=== PATIENT | female | born 1960 | race Caucasian/White ===

== ENCOUNTER 2018-07-04 09:39 | Outpatient (REF) | payer MEDICAID, SELFPAY ==
[2018-07-04 13:06] LABS: ALT 35 U/L (12-78); AST 25 U/L (15-37); Albumin 3.9 g/dL (3.4-5.0); Alkaline Phosphatase 75 U/L (46-116); Anion Gap 11.8 mmol/L (3-11); BUN 21 mg/dL (7-18); Bilirubin, Total 0.5 mg/dL (0.2-1.0); CO2 28.2 mmol/L (21.0-32.0); Calcium 9.5 mg/dL (8.5-10.1); Chloride 101 mmol/L (98-107); Cholesterol 180 mg/dL (50-200); Glucose 96 mg/dL (70-100); HDL Cholesterol 50 mg/dL (40-60); LDL CHOLESTEROL 110 mg/dL (<100); Potassium 3.5 mmol/L (3.5-5.1); Sodium 141 mmol/L (136-145); Total Protein 7.4 g/dL (6.4-8.2); Triglyceride 136 mg/dL (30-150)
[2018-07-04 13:13] LABS: COMMENT (LAB VIEW ONLY) 193.47 mg/dL; Microalb ug/mg Crea 7.9 ug/mg Cr
== END 2018-07-04 09:59 ==
LOC: NCHCN 09:39
PROVIDERS: PCP Nurse Practitioner Family; Visit Provider Nurse Practitioner Family
DX: E78.5 Hyperlipidemia, unspecified (principal); I10 Essential (primary) hypertension; E66.01 Morbid (severe) obesity due to excess calories
CPT/HCPCS: 80053; 80061; 83721; 82043; 82570

== ENCOUNTER 2019-06-26 19:00 | Outpatient (REF) | payer MEDICAID, SELFPAY ==
[2019-06-26 13:51] LABS: HGB 14.8 g/dL (12.0-15.5); Mean Corp. HGB Concentration 33.6 g/dL (32.0-36.0); Mean Corpuscular Hemoglobin 29.2 pg (27.0-33.0); Mean Platelet Volume 10.3 fL (8.0-11.0); Platelet Count 314 x1000/uL (130-400); RBC 5.06 m/cumm (4.00-5.20); RBC Distribution Width 13.9 % (11.7-14.6); White Blood Cell Count 7.01 k/cumm (4.4-10.8)
[2019-06-26 13:56] LABS: Anion Gap 11.1 mmol/L (3-11); BUN 20 mg/dL (7-18); CO2 27.9 mmol/L (21.0-32.0); CREATININE 0.87 mg/dL (0.55-1.02); Calcium 9.5 mg/dL (8.5-10.1); Chloride 102 mmol/L (98-107); Glucose 99 mg/dL (70-100); HDL Cholesterol 54 mg/dL (40-60); Sodium 141 mmol/L (136-145); Triglyceride 107 mg/dL (30-150)
[2019-06-26 14:17] LABS: Calculated LDL 156 mg/dL; Cholesterol 231 mg/dL (50-200)
== END 2019-06-26 19:20 ==
LOC: NCHCN 19:00
PROVIDERS: PCP Nurse Practitioner Family; Visit Provider Nurse Practitioner Family
DX: Z13.228 Encounter for screening for other metabolic disorders (principal); Z13.220 Encounter for screening for lipoid disorders; Z00.00 Encounter for general adult medical examination without abnormal findings
CPT/HCPCS: 80048; 80061; 85027

== ENCOUNTER 2019-07-03 10:34 | Outpatient (REF) | payer MEDICAID, SELFPAY ==
[2019-07-03 19:34] LABS: TSH (W/Ref FT4) 1.74 uIU/mL (0.36-3.74)
== END 2019-07-03 10:54 ==
LOC: NCHCN 10:34
PROVIDERS: PCP Nurse Practitioner Family; Visit Provider Nurse Practitioner Family
DX: E04.9 Nontoxic goiter, unspecified (principal)
CPT/HCPCS: 84443

== ENCOUNTER 2019-07-18 00:27 | Outpatient (CLI) | payer MEDICAID, SELFPAY ==
--- NOTE | 2019-07-18 12:00 | DI.US_ITS ---
EXAM: US THYROID CLINICAL HISTORY: ENLARGED THYROID E04.9 TECHNIQUE: Ultrasound performed using standard protocol. COMPARISON: No exams were available for comparison FINDINGS: The right lobe measures 3.7 x 1.7 x 1.8 centimeters. Normal blood flow seen to the right lobe. Ther e are several nodules seen in the right lobe. The largest is hypoechoic and measures 0.6 x 0.6 x 0.6 centimeters. It is solid with internal vascularity. The left lobe measures 4.9 x 2.1 x 2.9 centimeters. There is normal blood flow. There are several t hyroid nodules present; the dominant nodule is seen inferiorly and measures 3.3 x 2.3 x 3.0 centimete rs. It is solid with internal blood flow. The isthmus is enlarged measuring 0.6 centimeters. There are solid nodules seen within the isthmus. Largest measures 1.1 centimeters. It is solid and vascular. IMPRESSION: Multinodular thyroid gland. The dominant nodule is seen in the inferior left lobe. It measures 3.3 x 2.3 x 3.0 centimeters. It is solid with internal vascularity. Biopsy may be considered of this no dule.
== END 2019-07-18 00:47 ==
PROVIDERS: PCP Nurse Practitioner Family; Visit Provider Nurse Practitioner Family
DX: E04.2 Nontoxic multinodular goiter
CPT/HCPCS: 76536

== ENCOUNTER 2021-04-01 18:49 | Outpatient (REF) | payer MEDICAID, SELFPAY ==
[2021-04-01 21:54] LABS: HCT 43.5 % (36.0-46.0); HGB 14.7 g/dL (11.2-15.7); MCH 29.9 pg (27.0-33.0); MCHC 33.8 % (32.0-36.0); MCV 88.6 fL (80-95); MPV 10.5 fL (8.0-11.0); Platelet Count 278 10^3/uL (130-400); RBC 4.91 10^6/uL (3.93-5.22); RDW 13.6 % (11.7-14.6); RDW-SD 44.4 fL; WBC 7.27 10^3/uL (4.4-10.8)
[2021-04-01 22:02] LABS: ESR 13 mm/hr (0-30)
[2021-04-01 22:04] LABS: ALT 35 U/L (14-59); AST 23 U/L (15-37); Albumin 4.1 g/dL (3.4-5.0); Alkaline Phosphatase 67 U/L (46-116); Anion Gap 10.9 mmol/L (3-11); BUN 19 mg/dL (7-18); Bilirubin, Total 0.4 mg/dL (0.2-1.0); CO2 28.1 mmol/L (21.0-32.0); CREATININE 1.1 mg/dL (0.55-1.02); Calcium 9.6 mg/dL (8.5-10.1); Calculated LDL 143 mg/dL (<100); Chloride 102 mmol/L (98-107); Cholesterol 260 mg/dL (<200); Estimated GFR 50.33 (mL/min/1.73m2); Glucose 100 mg/dL (74-106); HDL Cholesterol 49 mg/dL (40-60); Potassium 3.9 mmol/L (3.5-5.1); Sodium 141 mmol/L (136-145); Total Protein 7.4 g/dL (6.4-8.2); Triglyceride 343 mg/dL (<150)
[2021-04-01 22:13] LABS: C-Reactive Protein 0.21 mg/dL (0.0-0.3)
[2021-04-01 22:17] LABS: D-Dimer 418 ng/mlFEU (<500)
== END 2021-04-01 18:50 | disposition home or self-care (01) ==
LOC: NCHCN 18:49
PROVIDERS: PCP Nurse Practitioner Family; Visit Provider Nurse Practitioner Family
DX: E78.5 Hyperlipidemia, unspecified (principal); I10 Essential (primary) hypertension; M25.561 Pain in right knee; G89.29 Other chronic pain
CPT/HCPCS: 80053; 80061; 85027; 85652; 85379; 86140

== ENCOUNTER 2021-04-07 02:21 | Outpatient (CLI) | payer MEDICAID, SELFPAY ==
--- NOTE | 2021-04-07 10:04 | DI.RAD_ITS ---
Exam(s) XR KNEE RT 3V AP,LAT,ROSALINA EXAM: XR KNEE RT 3V AP,LAT,ROSALINA CLINICAL HISTORY: RT KNEE PAIN, M25.561 TECHNIQUE: COMPARISON: No exams were available for comparison FINDINGS: Three views were obtained. There is severe loss of cartilaginous joint space of medial tibiofemoral joint. There is medial subluxation of the femur on the tibia and mild varus angulation of the knee. Note is also made moderate narrowing of the cartilaginous joint space of the patellofemoral joint. There are very prominent marginal osteophytes involving all 3 joints of the knee. Mild subchondral s clerosis noted involving the bones at the medial tibiofemoral joint. 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 RADIATION DOSE DELIVERED: Total DLP
== END 2021-04-07 02:41 ==
PROVIDERS: PCP Nurse Practitioner Family; Visit Provider Nurse Practitioner Family
DX: M17.11 Unilateral primary osteoarthritis, right knee (principal)
CPT/HCPCS: 73562

== ENCOUNTER 2021-07-07 13:55 | Outpatient (CLI) | payer MEDICAID, SELFPAY ==
--- NOTE | 2021-07-07 11:30 | DI.RAD_ITS ---
Exam(s) XR KNEE RT 1V EXAM: XR KNEE RT 1V CLINICAL HISTORY: mag marker - pre-op TECHNIQUE: COMPARISON: CR XR KNEE RT 3V AP,LAT,ROSALINA from 04/07/2021 FINDINGS: Two views were obtained with Mag marker. There are severe degenerative changes of the joints of the knee seen on these lateral views. IMPRESSION: RADIATION DOSE DELIVERED: Total DLP
--- NOTE | 2021-07-07 11:30 | DI.RAD_ITS ---
Exam(s) XR STANDING ALIGNMENT EXAM: XR STANDING ALIGNMENT CLINICAL HISTORY: mag marker pre-op TECHNIQUE: COMPARISON: No exams were available for comparison FINDINGS: AP views of both lower extremities were obtained for standing alignment views. There are severe dege nerative changes of the medial tibiofemoral joints. IMPRESSION: RADIATION DOSE DELIVERED: Total DLP
== END 2021-07-07 13:56 | disposition home or self-care (01) ==
LOC: DIORS 13:56
PROVIDERS: PCP Nurse Practitioner Family; Referring Provider Nurse Practitioner Family; Visit Provider Physician Assistant Surgical
DX: M17.11 Unilateral primary osteoarthritis, right knee (principal)
CPT/HCPCS: 73560; 77073

== ENCOUNTER 2021-07-13 03:45 | Outpatient (CLI) | payer MEDICAID, SELFPAY ==
[2021-07-13 09:43] LABS: HCT 47.6 % (36.0-46.0); HGB 15.9 g/dL (11.2-15.7); MCH 29.1 pg (27.0-33.0); MCHC 33.4 % (32.0-36.0); MCV 87.2 fL (80-95); MPV 9.8 fL (8.0-11.0); Platelet Count 231 10^3/uL (130-400); RBC 5.46 10^6/uL (3.93-5.22); RDW 13.3 % (11.7-14.6); RDW-SD 42.4 fL; WBC 7.23 10^3/uL (4.4-10.8)
[2021-07-13 10:30] LABS: Anion Gap 9.4 mmol/L (3-11); BUN 18 mg/dL (7-18); CO2 29.6 mmol/L (21.0-32.0); CREATININE 0.9 mg/dL (0.55-1.02); Calcium 9.8 mg/dL (8.5-10.1); Chloride 102 mmol/L (98-107); Glucose 99 mg/dL (74-106); Potassium 4.2 mmol/L (3.5-5.1); Sodium 141 mmol/L (136-145)
[2021-07-13 11:43] LABS: Source Nasal/Nares
[2021-07-13 15:51] LABS: COVID-19 PCR Negative (Negative)
== END 2021-07-13 03:46 | disposition home or self-care (01) ==
LOC: LBO 03:45
PROVIDERS: PCP Nurse Practitioner Family; Visit Provider Student in an Organized Health Care Education/Training Program
DX: Z01.818 Encounter for other preprocedural examination (principal); Z20.822 Contact with and (suspected) exposure to COVID-19; M17.11 Unilateral primary osteoarthritis, right knee
CPT/HCPCS: 36415; 80048; 85027; 87635

== ENCOUNTER 2021-07-14 08:02 | Day surgery (SDC) | payer MEDICAID, SELFPAY ==
[2021-07-14] VITALS (11 sets, daily range): BP systolic 121–155; BP diastolic 55–83; PULSE 52–66; RESP 14–18; TEMP 36–36.7; O2SAT 92–96; BMI 47.0
--- NOTE | 2021-07-14 | DI.RAD_ITS ---
Exam(s) XR KNEE RT 2V AP,LAT EXAM: XR KNEE RT 2V AP,LAT CLINICAL HISTORY: s/p R TKA with proximal tibial crack. TECHNIQUE: 2D digital imaging was performed of the right knee. Two views obtained. AP and lateral views were obtained. COMPARISON: CR XR KNEE RT 3V AP,LAT,ROSALINA from 04/07/2021 CR XR STANDING ALIGNMENT from 07/07/2021 CR XR STANDING ALIGNMENT from 07/07/2021 FINDINGS: BONES: No acute fracture is present. No bony destructive lesion is seen. JOINTS: The patient is now status post right total knee replacement. The orthopedic hardware appears in good position. SOFT TISSUE: Postsurgical changes are seen in the soft tissues. IMPRESSION: Status post right TKR. No fracture is identified. DATA REPOSITORY: RADIATION DOSE DELIVERED:
--- NOTE | 2021-07-14 07:56 | PDOC.DSDIS_ITS ---
Documented by User: JARVIS Simpson 07/14/21 08:00 Discharge Plan Disposition Patient Disposition: HOME Condition: Stable Discharge Details Reason For Visit: Right TKA Attending Provider: Husam Cyr Primary Care Provider: Dean Aldana Home Meds and New Rx's Prescriptions: New aspirin 81 mg tablet,delayed release (DR/EC) 81 mg PO BID Qty: 60 RF: 0 acetaminophen [Tylenol Extra Strength] 500 mg tablet 1,000 mg PO Q8H PRN PRNQty: 90 RF: 0 pantoprazole [Protonix] 40 mg tablet,delayed release (DR/EC) 40 mg PO DAILY Qty: 30 RF: 0 gabapentin 300 mg capsule 300 mg PO QHS Qty: 14 RF: 0 oxycodone 5 mg tablet 5 mg PO Q4H PRNQty: 18 RF: 0 meloxicam [Mobic] 15 mg tablet 15 mg PO DAILY Qty: 30 RF: 1 Continued meloxicam 15 mg tablet 15 mg PO DAILY RF: 0 biotin 10 mg tablet 10 mg PO DAILY RF: 0 Move Free Plus MSM 500 mg-66.7 mg- 500 mg-1.1 mg tablet 1 tab PO DAILY RF: 0 propranolol 80 mg tablet 80 mg PO BID RF: 0 omega-3 fatty acids [Fish Oil Concentrate] 1,000 mg capsule 1,000 mg PO DAILY RF: 0 trazodone 100 mg tablet 200 mg PO DAILY RF: 0 oxybutynin chloride 5 mg tablet 5 mg PO BID RF: 0 hydrochlorothiazide 25 mg tablet 25 mg PO DAILY RF: 0 multivitamin Tablet 1 tab PO DAILY RF: 0 No Action acetaminophen [Tylenol Extra Strength] 500 mg Capsule 1,500 PRNRF: 0 Discharge Instructions Additional Instructions: Total Knee Discharge Instructions Activity: The most important activity is to walk. You should try to take short walks a few times a day. It is important that when resting you work on keeping the knee straight. Avoid putting a pillow behind the knee as this will encourage flexion. Work on range of motion exercises as provided by Physical Therapy. Since you had the small crack in the tibia I have asked you to stay on your walker for extra safety. If you have the [employer] bike coming, this will be your primary tool for exercise after the knee replacement. You should use it and follow the directions for the knee. Utilize the other exercises sparingly based on your symptoms. - Start outpatient physical therapy around 2 weeks. - You should wear the FABRICIO hose on both legs for 2 weeks. You may remove these at night. You may also use any compression sock in place of the FABRICIO hose. - Utilize [employer] to review exercises, see videos on exercises and obtain basic information pertaining to your surgery and your recovery. Dressing: Remove the Talib wrap by 2 days after your surgery and put on the FABRICIO stocking given to you from the hospital. Keep the surgical dressing (underneath the TALIB wrap) in place for at least one week. After the first week it may be removed and replaced with light gauze and tape or nothing. The wound and dressing may get wet after 3 days but avoid soaking the dressing or otherwise it will need to be changed. Many people prefer covering the dressing with cling wrap (saran wrap) to minimize it from getting soaked. If it gets wet, just pat dry. If it starts to peel off then it will need to be changed. Medications: - You should take Tylenol and anti-inflammatory Meloxicam as your primary pain control medications. - You have been prescribed a stronger pain medication Oxycodone for breakthrough pain, take as needed as prescribed. - You have also been prescribed a stomach acid reduction agent Pantoprozole to help reduce stomach acid and reflux. - You have been prescribed Gabapentin to take at night for restlessness and nerve pain. - You will be taking Aspirin 81mg twice a day for DVT prevention unless instructed otherwise. - If you have constipation you should take Colace or Miralax (both [id number]). It takes most people 3-4 days to have a bowel movement. Follow-up: 2 weeks If you have any acute concerns or questions, please do not hesitate to contact the office at [phone]. You may contact Dr. Cyr with any questions after hours through the hospital at [phone] or on his cell phone at [phone]. Stand Alone Forms: Anesthesia Discharge InstAnne, Nerve Block Instructions, Zaki Alegre ([facility]) Referrals: Husam Cyr MD [ [facility] STAFF PHYSICIAN] - Equipment/Supplies: Walker Activity:: Activity as Tolerated Shower/Bathe:: 72 hours Diet:: As Tolerated Discharge Orders Discharge Orders: Discharge Order (Routine); Ordered 07/14/21 Ordered By: Tanna Guzman DS: Diagnosis Discharge Diagnosis (1) Localized osteoarthritis of right knee: Status: Acute Documented by User: Husam Cyr MD 07/14/21 13:45 Discharge Plan Disposition Patient Disposition: HOME Condition: Stable Discharge Details Reason For Visit: Right TKA Attending Provider: Husam Cyr Primary Care Provider: Dean Aldana Home Meds and New Rx's Prescriptions: New aspirin 81 mg tablet,delayed release (DR/EC) 81 mg PO BID Qty: 60 RF: 0 acetaminophen [Tylenol Extra Strength] 500 mg tablet 1,000 mg PO Q8H PRN PRNQty: 90 RF: 0 pantoprazole [Protonix] 40 mg tablet,delayed release (DR/EC) 40 mg PO DAILY Qty: 30 RF: 0 gabapentin 300 mg capsule 300 mg PO QHS Qty: 14 RF: 0 oxycodone 5 mg tablet 5 mg PO Q4H PRNQty: 18 RF: 0 meloxicam [Mobic] 15 mg tablet 15 mg PO DAILY Qty: 30 RF: 1 Continued meloxicam 15 mg tablet 15 mg PO DAILY RF: 0 biotin 10 mg tablet 10 mg PO DAILY RF: 0 Move Free Plus MSM 500 mg-66.7 mg- 500 mg-1.1 mg tablet 1 tab PO DAILY RF: 0 propranolol 80 mg tablet 80 mg PO BID RF: 0 omega-3 fatty acids [Fish Oil Concentrate] 1,000 mg capsule 1,000 mg PO DAILY RF: 0 trazodone 100 mg tablet 200 mg PO DAILY RF: 0 oxybutynin chloride 5 mg tablet 5 mg PO BID RF: 0 hydrochlorothiazide 25 mg tablet 25 mg PO DAILY RF: 0 multivitamin Tablet 1 tab PO DAILY RF: 0 No Action acetaminophen [Tylenol Extra Strength] 500 mg Capsule 1,500 PRNRF: 0 Discharge Instructions Additional Instructions: Total Knee Discharge Instructions Activity: The most important activity is to walk. You should try to take short walks a few times a day. It is important that when resting you work on keeping the knee straight. Avoid putting a pillow behind the knee as this will encourage flexion. Work on range of motion exercises as provided by Physical Therapy. Since you had the small crack in the tibia I have asked you to stay on your walker for extra safety. If you have the [employer] bike coming, this will be your primary tool for exercise after the knee replacement. You should use it and follow the directions for the knee. Utilize the other exercises sparingly based on your symptoms. - Start outpatient physical therapy around 2 weeks. - You should wear the FABRICIO hose on both legs for 2 weeks. You may remove these at night. You may also use any compression sock in place of the FABRICIO hose. - Utilize [employer] to review exercises, see videos on exercises and obtain basic information pertaining to your surgery and your recovery. Dressing: Remove the Talib wrap by 2 days after your surgery and put on the FABRICIO stocking given to you from the hospital. Keep the surgical dressing (underneath the TALIB wrap) in place for at least one week. After the first week it may be removed and replaced with light gauze and tape or nothing. The wound and dressing may get wet after 3 days but avoid soaking the dressing or otherwise it will need to be changed. Many people prefer covering the dressing with cling wrap (saran wrap) to minimize it from getting soaked. If it gets wet, just pat dry. If it starts to peel off then it will need to be changed. Medications: - You should take Tylenol and anti-inflammatory Meloxicam as your primary pain control medications. - You have been prescribed a stronger pain medication Oxycodone for breakthrough pain, take as needed as prescribed. - You have also been prescribed a stomach acid reduction agent Pantoprozole to help reduce stomach acid and reflux. - You have been prescribed Gabapentin to take at night for restlessness and nerve pain. - You will be taking Aspirin 81mg twice a day for DVT prevention unless instructed otherwise. - If you have constipation you should take Colace or Miralax (both [id number]). It takes most people 3-4 days to have a bowel movement. Follow-up: 2 weeks If you have any acute concerns or questions, please do not hesitate to contact the office at [phone]. You may contact Dr. Cyr with any questions after hours through the hospital at [phone] or on his cell phone at [phone]. Stand Alone Forms: Anesthesia Discharge InstAnne, Abdiel.Nerve Block Instructions, Zaki Alegre ([facility]) Referrals: Husam Cyr MD [ [facility] STAFF PHYSICIAN] - Equipment/Supplies: Walker Activity:: Activity as Tolerated Shower/Bathe:: 72 hours Diet:: As Tolerated Discharge Orders Discharge Orders: Discharge Order (Routine); Ordered 07/14/21 Ordered By: Tanna Guzman
[2021-07-14] MEDS: Acetaminophen 500 MG TAB 1000 MG PO (08:40)
[2021-07-14] MEDS: Celecoxib 200 MG CAP 400 MG PO (08:40)
[2021-07-14] MEDS: Gabapentin 300 MG CAP PO (08:41)
[2021-07-14] MEDS: Lactated Ringers 1,000 ML 80 ML IV ×2 (09:05→13:15)
--- NOTE | 2021-07-14 10:09 | W.ANESPRE ---
General Info Date of Service Date Performed: 07/14/21 Height: 5 ft 7 in Weight: 136.1 kg Body Mass Index (BMI): 47.0 Surgical Procedure: Operation Date: 07/14/21 10:40 Proposed Procedures Side Surgeon p (R) Knee Total Arthroplasty Right Husam Cyr MD Meds Allergies and Home Medications Allergies Allergy/AdvReac Type Severity Reaction Status Date / Time Gadolinium-Containing Allergy Severe anaphalaxis Verified 07/14/21 08:24 Contrast Medi Home Medication Medication Instructions Recorded biotin 10 mg tablet 10 mg PO DAILY 05/25/21 glucos 500 mg-chond 66.7 mg-msm 1 tab PO DAILY 05/25/21 500 mg-hyalur 1.1 mg-sachin borate tablet hydrochlorothiazide 25 mg tablet 25 mg PO DAILY 05/25/21 meloxicam 15 mg tablet 15 mg PO DAILY 05/25/21 multivitamin 1 tab PO DAILY 05/25/21 omega-3 fatty acids 1,000 mg 1,000 mg PO DAILY 05/25/21 capsule oxybutynin chloride 5 mg tablet 5 mg PO BID 05/25/21 propranolol 80 mg tablet 80 mg PO BID 05/25/21 trazodone 100 mg tablet 200 mg PO DAILY tab 05/25/21 acetaminophen [Tylenol Extra 1,000 mg PO Q8H PRN PRN #90 tab 07/14/21 Strength] acetaminophen [Tylenol Extra 1,500 PRN 07/14/21 Strength] aspirin 81 mg PO BID #60 tab 07/14/21 celecoxib [Celebrex] 200 mg PO BID #60 cap 07/14/21 gabapentin 300 mg PO QHS #14 cap 07/14/21 oxycodone 5 mg PO Q4H PRN #18 tab 07/14/21 pantoprazole [Protonix] 40 mg PO DAILY #30 tab 07/14/21 Current Visit Medications: Current Medications Generic Name Dose Route Start Last Admin Trade Name Freq PRN Reason Stop Dose Admin Acetaminophen 1,000 mg 07/14/21 06:00 07/14/21 08:40 Acetaminophen 500 Mg Tab PO 07/14/21 16:00 1,000 mg PREOP CARMINA Administration Acetaminophen 1,000 mg 07/14/21 14:00 Acetaminophen 500 Mg Tab PO TID CARMINA Aspirin 81 mg 07/14/21 20:00 Aspirin E.C. 81 Mg Tabec PO BID CARMINA Celecoxib 400 mg 07/14/21 06:00 07/14/21 08:40 Celecoxib 200 Mg Cap PO 07/14/21 16:00 400 mg PREOP CARMINA Administration Celecoxib 200 mg 07/14/21 20:00 Celecoxib 200 Mg Cap PO BID CARMINA Docusate Sodium 100 mg 07/14/21 07:55 Docusate Sodium 100 Mg Cap PO BID PRN PRN Constipation Gabapentin 300 mg 07/14/21 06:00 07/14/21 08:41 Gabapentin 300 Mg Cap PO 07/14/21 16:00 300 mg PREOP CARMINA Administration Gabapentin 300 mg 07/14/21 22:00 Gabapentin 300 Mg Cap PO HS CARMINA Hydromorphone HCl 0.5 mg 07/14/21 07:55 Hydromorphone 2 Mg/Ml Vial IVP Q2H PRN PRN Tranexamic Acid 1,000 mg/ 60 mls @ 360 mls/hr 07/14/21 06:00 Sodium Chloride IVPB 07/14/21 16:00 PREOP CARMINA Tranexamic Acid 1,000 mg/ 60 mls @ 360 mls/hr 07/14/21 06:00 Sodium Chloride IVPB 07/14/21 16:00 DIRECTED CARMINA Cefazolin Sodium 3,000 mg/ 100 mls @ 200 mls/hr 07/14/21 06:00 Sodium Chloride IVPB 07/14/21 23:59 PREOP CARMINA Ringer's Solution 1,000 mls @ 80 mls/hr 07/14/21 06:00 07/14/21 09:05 IV 08/12/21 23:59 80 mls/hr INFUSION CARMINA Administration Cefazolin Sodium/Dextrose 1 gm in 50 mls @ 100 mls/hr 07/14/21 16:00 Ancef Duplex IVPB 07/15/21 08:29 Q8H CARMINA IV Miscellaneous Supplies 1 each 07/14/21 06:00 Iv Access IV 08/12/21 23:59 DIRECTED CARMINA Ondansetron HCl 4 mg 07/14/21 07:55 Ondansetron 4 Mg/2 Ml Vial IVP Q6H PRN PRN Nausea Oxycodone HCl 0 mg 07/14/21 07:55 Oxycodone 5 Mg Tab PO Q3H PRN PRN Pain Pantoprazole Sodium 40 mg 07/15/21 07:30 Pantoprazole 40 Mg Tabcr PO DAILY@0730 CARMINA Sodium Chloride 0 ml 07/14/21 06:00 Normal Saline Flush 10 Ml Syr IV 08/12/21 23:59 PRN PRN Sodium Chloride 0 ml 07/14/21 06:00 Normal Saline 10 Ml Vial IJ 08/12/21 23:59 DIRECTED PRN Sterile Water 0 ml 07/14/21 06:00 Water,Injection,Sterile 10 Ml Vial IJ 08/12/21 23:59 DIRECTED PRN PFSH Active Problems Active Problems: Problem Status Onset Code Localized osteoarthritis of right knee M17.11 Hypertension I10 Multinodular thyroid E04.2 Thyroid nodule E04.1 Medical History Medical History (Updated 07/14/21 @ 08:28 by Lainey Dodd) Hypertension Multinodular thyroid pt. reports biopsy two years ago Obesity Thyroid nodule Surgical History Surgical History History of appendectomy (12/18/90) History of cholecystectomy (12/18/90) Tobacco Smoking/Tobacco Use Status: Former Tobacco Use Quit Status: quit date established Alcohol Alcohol Intake: never Substance Use Substance use: Never Substance use type: does not use Vital Signs and Lab Results Vital Signs Most Recent Vital Signs in EMR: Most Recent Vital Signs Temp Pulse Resp BP Pulse Ox 36.7 C 53 L 14 121/73 94 07/14/21 08:32 07/14/21 08:32 07/14/21 08:32 07/14/21 08:32 07/14/21 08:32 Lab Results Blood Type / Crossmatch: No Data to Display Complete Blood Count: White Blood Count 7.23 10^3/uL (4.4-10.8) 07/13/21 09:38 07/13/21 Red Blood Count 5.46 10^6/uL (3.93-5.22) H 07/13/21 09:38 07/13/21 Hemoglobin 15.9 g/dL (11.2-15.7) H 07/13/21 09:38 07/13/21 Hematocrit 47.6 % (36.0-46.0) H 07/13/21 09:38 07/13/21 Platelet Count 231 10^3/uL (130-400) 07/13/21 09:38 07/13/21 Complete Metabolic Panel: Sodium Level 141 mmol/L (136-145) 07/13/21 09:38 07/13/21 Potassium Level 4.2 mmol/L (3.5-5.1) 07/13/21 09:38 07/13/21 Chloride Level 102 mmol/L (98-107) 07/13/21 09:38 07/13/21 Carbon Dioxide Level 29.6 mmol/L (21.0-32.0) 07/13/21 09:38 07/13/21 Blood Urea Nitrogen 18 mg/dL (7-18) 07/13/21 09:38 07/13/21 Creatinine 0.9 mg/dL (0.55-1.02) 07/13/21 09:38 07/13/21 Estimated GFR/1.73 m2 >= 60.00 (mL/min/1.73m2) 07/13/21 09:38 07/13/21 Calcium Level 9.8 mg/dL (8.5-10.1) 07/13/21 09:38 07/13/21 Glucose Level 99 mg/dL (74-106) 07/13/21 09:38 07/13/21 Liver Function Panel: No Data to Display Coagulation Panel: No Data to Display Cardiac Panel: No Data to Display Arterial Blood Gas: No Data to Display Venous Blood Gas: No Data to Display Pancreas Panel: No Data to Display Thyroid Panel: No Data to Display Infectious Disease: Coronavirus (COVID-19)(PCR) Negative (Negative) 07/13/21 10:36 07/13/21 Coronavirus 2019 Source Nasal/Nares 07/13/21 10:36 07/13/21 Blood Cultures: No Data to Display Toxicology Panel: No Data to Display Anesthesia Assessment and Plan Anesthesia History Personal History: No History of Anesthesia Complications Family History: No Family History of Anesthesia Complications Exercise Tolerance Exercise Tolerance: Metabolic Equivalents>4 Pertinent Negatives Pertinent Negatives: No Symptoms of GERD, No Major Cardiovascular Symptoms or Complaints and No Major Pulmonary Symptoms or Complaints Cardiac & Pulmonary Exam Cardiac Exam: Normal S1/S2 Heart Sounds Pulmonary Exam: Clear Bilateral Breath Sounds Implantable Cardiac Device Does patient have a Pacemaker or an ICD?: No Airway Exam Known Difficult Airway: No Mallampati Class: 2 Mouth Opening: Normal (> 3cm) Thyromental Distance: Greater than 3 cm Neck Range of Motion: Full ROM Neck Circumference: Thick Teeth Condition: Normal Dentition ASA Classification ASA Score: ASA 3 Emergency Case?: No NPO Status NPO Status: NPO Clears >2 hours, Solids >8 hours Anesthesia Plan Resuscitation Status: Full Code Anesthesia Technique: Spinal Anesthesia Airway Planned: Natural Airway Pain Management: Surgeon and patient request nerve block Monitors Used: Standard Monitors
[2021-07-14] MEDS: ceFAZolin 3,000 MG in Normal Saline 100 ML 200 MG IVPB (11:23)
--- NOTE | 2021-07-14 11:44 | W.ANESNERVE ---
Nerve Block Single Injection Procedure Date and Time Date Performed: 07/14/21 Procedure Start: 10:55 Location Where Procedure Performed Procedure Location: Day Surgery Unit Reason Performed: Postoperative Analgesia Requesting Provider: Husam Cyr Timeout Performed Timeout Performed: Yes Monitoring Used ECG, Blood Pressure and SpO2 Sterility Sterility: Hand Hygiene, Surgical Cap, Surgical Mask, Sterile Gloves, Sterile Drape/Sheet, Eye Protection and Chlorhexidine Sedation Given During Procedure Sedation Given (Indicate Dose Given): No Sedation given Patient Mental Status Patient Mental Status: Awake Nerve Block 1st Nerve Block: Laterality: Right Block Type: Adductor Canal Needle / Catheter Used: 100mm SonoPlex II Local Anesthetic Bolus (Indicate Dose Given): Lidocaine used for local infiltration of skin and Bupivacaine 0.25% Dose:: 20cc Additives (Indicate Dose Given): None Ultrasound: Sterile probe cover and gel used Ultrasound Image Saved?: Yes Nerve Stimulator: Not Used Paresthesia: None Procedure Tolerated: No Complications and Patient tolerated well Procedure Outcome: Successful Performed By: Felix Lawton
--- NOTE | 2021-07-14 13:59 | DI.RAD_ITS ---
Exam(s) XR TIB/FIB RT EXAM: XR TIB/FIB RT CLINICAL HISTORY: evaluate tibia for fracture s/p TKA. TECHNIQUE: 2D digital imaging was performed of the right tibia and fibula. Two images were obtained. AP and lateral views were obtained. COMPARISON: No exams were available for comparison FINDINGS: The distal tibia is not included on this examination. BONES: No acute fracture is present. No bony destructive lesion is seen. The patient has a right tota l knee replacement. No lucencies are seen around the visualized portions of the orthopedic hardware. SOFT TISSUE: Normal. IMPRESSION: No acute fracture or dislocation of the visualized portions of the tibia and fibula. DATA REPOSITORY: RADIATION DOSE DELIVERED:
--- NOTE | 2021-07-14 15:30 | IN_ITS ---
Date of service: 07/14/21 Time of Service: 15:30 PT Notes Visit Reasons: Right TKA Physical Therapy Day Surgery Initial Evaluation Date: 07/14/2021 Referring Doctor: Husam Cyr MD PT Orders: PT CONSULT: Status post Ortho surgery. Status post right TKA Precautions: WBAT on right LE with AD. Patient Profile/Admitting Diagnosis: Purnima is a 61-year-old female with degenerative joint disease of the right knee and is status post right total knee arthroplasty on postoperative day 0. PMHX: Medical History (Updated 05/26/21 @ 06:05 by Husam Cyr MD) Hypertension Multinodular thyroid Obesity Thyroid nodule Social History/Home Situation: Lives with in a private home with 5 steps to enter with 2 rails with far apart. Has an alternate ramp to enter their office area. 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 Independent with all aspects of ADLs without an assistive device but has had increasing difficulty with mobility since February of this year. Equipment Owned/DME: [facility], [facility] ([employer]) Subjective: Agreeable to PT consult. Reported 2-3/10 pain in the right knee at rest and up to 5/10 pain with weight bearing and ambulation activity. Denies headache, chest pain, and dizziness throughout session. Objective: General Observation: Supine in bed. ANOOP wraps to R LE. Cryo/Cuff to right knee. Alert and oriented x4 Mental Status: Alert and oriented x4 Pain: 2?3/10 pain in the right knee at rest and 5?10 pain with movement and weight bearing ROM: Right Lower Extremity: Hip flexion WFL. Hip abduction WFL. Knee flexion 20 degrees to 100 degrees with pain at end range of movement. Knee extension -20 degrees. Ankle dorsiflexion WFL. Ankle plantarflexion WFL. Left Lower Extremity: Hip flexion WFL. Hip abduction WFL. Knee flexion WFL. Ankle dorsiflexion WFL. Ankle plantarflexion WFL. Strength: [ Right Lower Extremity: Hip flexors 4/5. Hip abductors 4/5. Knee flexors 3-/5. Knee extensors 3-/5. Ankle dorsiflexors 4/5. Ankle plantarflexors 5/5. Left Lower Extremity: Hip flexors 4/5. Hip abductors 4/5. Knee flexors 4/5. Knee extensors 4/5. Ankle dorsiflexors 4/5. Ankle plantarflexors 5/5. Sensation: Intact as to pain and light pressure in bilateral lower extremities. Bed Mobility/Transfers: Supine to sit supervision Sit to stand contact-guard assist Stand to sit standby assist Bed to chair standby assist Gait: Instructed patient with level surface surface ambulation of 100 feet using front wheeled walker with wheelchair follow of Nurse Valentin. Step to gait pattern initially but was able to work on performing step through gait pattern with increasing pain level to 5/10 pain after ambulation activity. Standby assist provided. Minimal verbal cueing for overall safety provided. Stairs: Minimal verbal cueing provided for correct technique with stair negoti ation of 6 x 4 inch steps and 4 x 6 inch steps while holding onto 1 rail with a gait pattern. Standby assist provided. Balance: Static Sitting: Normal Dynamic Sitting: Normal Static Standing: Fair Dynamic Standing: Fair Special Tests: Mobility Limitations Standardized Measure [facility] 6 clicks Basic Mobility Inpatient Short Form: Raw Score: 22 CMS Score: 21% deficit Informed Consent/Education: Patient instructed in purpose of PT consult. Packet containing TKA exercise protocol has been given to patient. Education and training on initial set of exercises that can be done at home have been completed with patient. Assessment: Purnima requires the use of a front wheel walker to maximize independence and reduce fall risk. Patient presents with clinical signs and symptoms consistent with current/admitting diagnoses that have resulted to mobility limitations, gait instability, generalized weakness, and impairment of motor control as demonstrated by the following impairment level findings: 1. Decreased strength to right knee major muscle groups 2. Impaired standing balance 3. Limitation of joint range of motion in right knee Impairments are contributing to the following functional limitations: 1. Inability to safely ambulate without assistive device 2. Increase completion time for mobility ADL performance 3. Increased fall risk Patient is assessed as a 67829 moderate complexity based on the following: History: 61-year-old female with impairment level findings, functional limitations, and past medical history as indicated above Examination: Demonstrable impairment in strength, balance, and mobility level with underlying impairments and functional limitations as documented above Presentation: Evolving Decision Makin moderate complexity Goals: N/A. PT evaluation and 1-2 treatment sessions only for functional mobility training using recommended AD and for HEP instruction. Plan of Care/Treatment Plan: N/A. PT evaluation and 1-2 treatment session only for functional mobility training using recommended AD and for HEP instruction. DISCHARGE RECOMMENDATIONS: [] Home with no services [] Home with services [specify] [X] Home with outpatient PT. Home when medically cleared by orthopedic surgeon. Will require outpatient services to facilitate return to independent community ambulation without an assistive device or with least active ambulatory device. [] SNF for continued rehabilitation [] [] [facility] [] [] SNF versus LTC based on ability to participate and progress [] TREATMENT CODE/TIME: 08345 x 20 minutes, 96669 x 19 minutes beginning at 15:30 PM. Thank you for the opportunity to participate in the care of this patient. Carla Oliva PT, DPT, CLT [facility] [place], [place]
--- NOTE | 2021-07-14 15:33 | W.ANESPOSTOP ---
Postoperative Evaluation Date, Time and Location Date Performed: 07/14/21 Time Performed: 15:33 Patient Location: Day Surgery Unit Vital Signs Most Recent Imported Vital Signs: Most Recent Vital Signs Temp Pulse Resp BP Pulse Ox 36.4 C L 63 18 139/67 93 07/14/21 14:50 07/14/21 14:50 07/14/21 14:50 07/14/21 14:50 07/14/21 14:50 Pain Score Most Recent Pain Score: Most Recent Pain Score Pain Level [Right Knee] 0 07/14/21 08:45 Pain Level 1 07/14/21 14:50 Assessment Mental Status: Awake (Alert & Oriented to Patient Baseline) Airway and Respiratory Function: Patent airway with normal (patient baseline) respiratory exam Cardiovascular Function: Hemodynamically Stable Hydration Status: Adequately Hydrated Nausea & Vomiting: No Nausea or Vomiting Pain: Pt. Denies Any Pain Peripheral Nerve Block: Regional nerve block not resolved at time of post operative discharge Teaching Patient Teaching: Discussed Safe Use of Pain Medication Given Likely or Known FRANCISCO JAVIER
--- NOTE | 2021-07-14 21:12 | W.PM.OP ---
Date of service: 07/14/21 Time of Service: 12:29 Operative Note Operative Note DATE OF PROCEDURE: 07/14/21 PRE-OP DIAGNOSIS: Right Knee Osteoarthritis POST-OP DIAGNOSIS: same PROCEDURE: Right Total Knee Replacement SURGEON: Husam Cyr DERMATOLOGICAL SURGEON: Tanna Guzman ANESTHESIA TYPE: Spinal Refer to Anesthesia Record ESTIMATED BLOOD LOSS: 100 PATHOLOGY: none sent TOURNIQUET TIME: 0 COMPLICATIONS: Other (A contained crack at the anterior tibia developed during final impaction of the tibial component. It was explored and had no extension distally, medially, or laterally. It was unable to be opened or displaced and connected two pinholes on the anterior tibia.) Patient was transported to: PACU Patient's condition: stable Implants: 1. Depuy Attune Cementless Cruciate Retaining Femoral Component, Size 5 2. Depuy Attune Cementless Rotating Platform Tibial Component, Size 4 3. Depuy Attune 5x7mm CR/RP Poly 4. Depuy Attune Patellar Component, Size 35 Indications: I have seen Purnima in clinic for symptoms of knee arthritis, confirmed with radiographic findings. She has exhausted nonoperative methods and was having significant limitations in daily function and desired better function and less pain. I discussed the technical details of a knee replacement. I explained the risks of the procedure to include, but not limited to, bleeding, infection, pain, stiffness, fracture, damage to nerves and vessels, damage to muscles and tendons, loosening, need for repeat procedure, blood clot and cardiopulmonary demise. Despite these risks, Purnima elected to proceed. Findings: There was significant signs of arthritis throughout the knee, the majority was being medial. Bone quality was excellent. Procedure Description: Purnima was greeted in the preoperative holding area where the correct side was identified and marked. The consent was reviewed with the patient and signed. The history and physical was updated. All questions were answered. Preoperative medications were administered: Acetaminophen 1000mg, Celebrex 400mg, and Gabapentin 300mg. An adductor canal block was then administered by the anesthesia team in the PACU. Purnima was taken back to the operating room. A spinal anesthestic was then administered. The patient was placed into the supine position on the operating room table. A nonsterile tourniquet was placed high onto the leg but only used for cementing. Posts were placed for positioning during the procedure. All bony prominences were well padded. Prophylactic antibiotics in the form of Cefazolin were administered. 1g of Tranxemic Acid was given intravenously within 30 minutes of incision. The right leg was then prepped with Chloraprep and draped in a standard fashion with impervious stockinette. A second prep with Chloraprep was performed prior to application of Iodine impregnated skin protection. A timeout to confirm correct identity, side and site, procedure, allergies, anesthesia, and medical concerns was performed. With the knee in some flexion, a midline incision was made overlying the knee. Full thickness skin flaps were raised once the extensor mechanism was encountered. These were raised medially and laterally. Any bleeding was controlled with electrocautery. Once the extensor mechanism was fully exposed, a medial parapatellar arthrotomy was performed in a flexed position. All bleeding from the arthrotomy and the geniculate arteries was coagulated. A medial subperiosteal peel was performed with electrocautery to the midcoronal plane. Due to the significant varus deformity the entire medial tibial plateau was exposed. The fat pad was removed while keeping the patellar tendon protected. The anterior distal femur synovium was removed for later visualization. The ACL and PCL were resected and the anterior horn of the lateral meniscus was transected. The knee was then flexed with the patella everted. Large osteophytes from the tibia were removed. Large osteophytes from the femur were removed. Using a step drill, and based on preoperative templating, the femoral canal was entered. This was done with a step drill without any difficulty. The intramedullary distal femoral cut guide was inserted, set to a 5 degree valgus cut and 9mm cut thickness. The distal femoral cut guide was then held in position and pinned. With the soft tissues protected, the distal cut was performed. This was passed over a few times to ensure a planar cut. I then turned attention to the tibia. The extramedullary guide was placed onto the leg. The distal aspect was slid medial to adjust for position of center of ankle and stay in line with shaft of the tibia. Approximately 3-5 degrees of posterior slope was kept in the proximal cutting guide. The center of the guide was aligned with the PCL. The stylus was used to assess cut thickness. The medial side, most involved side, was set for a 3mm cut. This was then held in position and pinned into place with 2 additional pins and a cross pin for stability. The medial and lateral collateral ligaments were protected and the cut was performed. With this completed, it was assessed and noted to be of appropriate dimensions. The guide was removed. A spacer block was inserted and the knee was brought into extension. The 7mm spacer block provided full extension, without hyperextension and with stability of both the medial and lateral collateral ligaments was assessed. The pins from the femur and the tibia were then removed. The distal femur was then sized. The anterior stylus was placed onto the lateral ridge of the anterior femur. This indicated a size 5 femur. The external rotation of the guide was adjusted to 3 degrees to match the epicondylar axis, perpendicular to Samaria?s line. The 4-in-1 cutting guide was the placed. The posterior medial femur cut was evaluated and appeared of good thickness. The spacer block was inserted underneath the cutting guide and stability was confirmed in 90 degrees of flexion. An destiny wing was used to confirm appropriate position of the anterior cut to avoid notching. This cutting guide was ensured to be flush on the cut surface and then pinned into place with headed pins. While protecting the soft tissues, quad tendon, and collateral ligaments, the anterior and posterior cuts were performed with a saw. The central two pins were removed and the posterior and anterior chamfers were cut next. The notch-cutting guide was placed. This was pinned to lateralize the femoral component as much as possible while keeping it flush on the cut surface. This was then pinned into position. A reciprocating saw was used to make the notch cut. A rasp smoothed the cut surfaces. The medial and lateral menisci were removed. A trial femoral component was then inserted, impacted down to the cut surfaces, and the lug holes were drilled. A provisional trial tibial component was placed and the knee was brought through range of motion. There was noted to be excellent extension and flexion. There was no significant instability. The patella was tracking without thumbs. A size 7mm polyethylene component provided the best range of motion and stability with less than 2mm gapping with medial and lateral stress and full extension without significant hyperextension. The tibial cut surface was fully exposed. The tibia was then sized as a 4. The tibia had been previously marked during trialing to correspond to the center of the tibial component to help with rotation. The trial was aligned to this geoffrey, approximately rotated to the medial 1/3rd of the tibial tubercle. The trial was pinned into place. The tibia was prepared with a reamer and a keel punch and lug holes. The knee was then brought into extension and the patella was measured as 23mm. Using the patellar clamp and cut guide, this was resected to a flat surface with at least 13mm of thickness remaining. The size 35 patella fit the best. This was oriented and then clamped into position. The lugs were drilled. The trial components were removed. The final components were opened on the back table. The periosteal and capsular tissues, especially posteriorly, around the knee were then systematically injected with a periarticular cocktail consisting of 50cc 0.25% Marcaine, 30mg Ketorolac, 20cc of Exparal and 50cc of injectable saline. The knee was thoroughly irrigated with a pulse lavage and dried. Irrisept was also used to irrigate the tissues. On the back table, with the implants opened, the cement was mixed. One batch of high viscosity cement was prepared with vacuum assistance. After the cement was ready a small amount was placed on the cut surface of the patella and the patellar button was clamped into position and held. While the cement was hardening, the cementless knee components were placed. Starting with the tibial component, the tibia was subluxed anteriorly and the lug holes of the component were lined up. The tibia was then impacted with an impactor and mallet until the tibial component was in contact with the tibia. During the final impaction, there was a crack identified of the anteiror tibia. It started from the base of an anterior osteophyte which was resected into a pinhole. I used a freer to identify the crack and follow it. It ended at the pinhole and did not extend medially, laterally, or distally. I used the freer to attempt to mobilize the fragment and assess its stability. I was unable to move the split at all. Once again, I looked distally with some dissection and could not appreciate any extension. Additionally, I loaded the knee axially and placed vaurs and valgus stress on the component and there was no change to the fracture or component. The final polyethylene component was inserted. Then, the femoral component was inserted. The lug holes were aligned and the component was impacted into position. The knee was irrigated with Irrisept chlorhexadine solution. This was allowed to sit in the knee for 3 minutes. After the cement had finally cured, approximately 15min, the clamp was removed from the patella and the knee was taken through range of motion. The patella was tracking with a no-thumbs technique. The capsule was then reapproximated with a No. 1 Vicryl at multiple locations. The capsule was finally closed with a No. 2 Stratafix, barbed suture. The second dosing of 1g TXA was started. Deep tissues were then reapproximated with 0 Vicryl and 2-0 Vicryl. The skin was closed with a running 3-0 Monocryl in a subcuticular fashion. This was reinforced with skin glue. A Mepilex silver dressing was applied along with a [id number]-gltok ANOOP wrap. A CryoCuff was applied. Purnima was transferred to the hospital bed without difficulty an suffering no apparent complication. Purnima has a good prognosis. Physical therapy will start today and without restrictions, weight-bearing as tolerated. Aspirin 81mg BID will be used for DVT prophylaxis.
== END 2021-07-14 17:11 | disposition home or self-care (01) ==
LOC: SUR 08:03
PROVIDERS: PCP Nurse Practitioner Family; Visit Provider Student in an Organized Health Care Education/Training Program
PROC: (CPT 27447; principal; 2021-07-14 10:30)
DX: M17.11 Unilateral primary osteoarthritis, right knee (principal); I10 Essential (primary) hypertension; E66.9 Obesity, unspecified; Z87.891 Personal history of nicotine dependence
CPT/HCPCS: 27447; 97162; 97530; 73560; 73590; J0690; J2001; J2250

== ENCOUNTER 2021-07-27 14:21 | Outpatient (CLI) | payer MEDICAID, SELFPAY ==
--- NOTE | 2021-07-27 13:45 | DI.RAD_ITS ---
Exam(s) XR KNEE RT 1V XR STANDING ALIGNMENT EXAM: XR KNEE RT 1V CLINICAL HISTORY: 1ST POST OP R TKA. TECHNIQUE: 2D digital imaging was performed. COMPARISON: No exams were available for comparison FINDINGS: BONES: No acute fracture is present. No bony destructive lesion is seen. JOINTS: The knee is normally aligned. No joint effusion is seen. Right total knee prosthesis appear s unchanged. Severe narrowing of the medial femoral tibial joint space of the left knee. Varus angu lation. There is bilateral lateral downsloping of the talus and mild medial tibiotalar joint space n arrowing. The hip joint spaces are well maintained. Pelvis is not well penetrated. There is no vis ible leg length discrepancy. SOFT TISSUE: Normal. IMPRESSION: Stable knee prosthesis. Severe degenerative changes medial femoral tibial joint left knee. DATA REPOSITORY: RADIATION DOSE DELIVERED:
== END 2021-07-27 14:22 | disposition home or self-care (01) ==
LOC: DIORS 14:21
PROVIDERS: PCP Nurse Practitioner Family; Referring Provider Nurse Practitioner Family; Visit Provider Student in an Organized Health Care Education/Training Program
DX: Z96.651 Presence of right artificial knee joint (principal); Z47.1 Aftercare following joint replacement surgery
CPT/HCPCS: 73560; 77073

== ENCOUNTER 2022-06-22 15:28 | Outpatient (REF) | payer MEDICAID, SELFPAY ==
[2022-06-22 20:24] LABS: Anion Gap 9.1 mmol/L (3-11); BUN 24 mg/dL (7-18); CO2 27.9 mmol/L (21.0-32.0); Calcium 9.9 mg/dL (8.5-10.1); Chloride 105 mmol/L (98-107); Glucose 84 mg/dL (74-106); Potassium 3.8 mmol/L (3.5-5.1); Sodium 142 mmol/L (136-145)
== END 2022-06-22 15:29 | disposition home or self-care (01) ==
LOC: NCHCN 15:28
PROVIDERS: PCP Nurse Practitioner Family; Visit Provider Nurse Practitioner Family
DX: I10 Essential (primary) hypertension (principal)
CPT/HCPCS: 80048; 84443

== ENCOUNTER 2022-07-15 11:29 | Outpatient (CLI) | payer MEDICAID, SELFPAY ==
--- NOTE | 2022-07-15 11:15 | DI.RAD_ITS ---
Exam(s) XR KNEE RT 2V AP,LAT EXAM: XR KNEE RT 2V AP,LAT CLINICAL HISTORY: R TKR. TECHNIQUE: 2D digital imaging was performed. Two images were obtained. AP and lateral views were ob tained. COMPARISON: CR XR KNEE RT 2V AP,LAT from 07/14/2021 CR XR STANDING ALIGNMENT from 07/27/2021 CR XR KNEE RT 1V from 07/27/2021 FINDINGS: BONES: There are stable post operative changes present. No fracture or dislocation. JOINTS: The orthopedic hardware is in good position. No evidence of hardware loosening. There does appear to be a small joint effusion. SOFT TISSUE: Normal. IMPRESSION: Stable postoperative changes. DATA REPOSITORY: RADIATION DOSE DELIVERED:
== END 2022-07-15 11:30 | disposition home or self-care (01) ==
LOC: DIORS 11:29
PROVIDERS: PCP Nurse Practitioner Family; Referring Provider Nurse Practitioner Family; Visit Provider Physician Assistant
DX: Z96.651 Presence of right artificial knee joint (principal)
CPT/HCPCS: 73560

== ENCOUNTER 2023-06-23 12:06 | Outpatient (REF) | payer MEDICARE, MEDICAID, SELFPAY ==
[2023-06-23 18:20] LABS: Abs Immature Grans 0.02 10^3/uL (0.0-0.06); Absolute Basophil Count 0.09 10^3/uL (0.0-0.2); Absolute Lymphocyte Count 1.43 10^3/uL (1.2-3.4); Absolute Monocyte Count 0.57 10^3/uL (0.1-0.8); Absolute Neutrophil Count 3.32 10^3/uL (1.2-6.7); Basophils % 1.6; Eosinophils % 3.6; HCT 43.4 % (36.0-46.0); HGB 14.2 g/dL (11.2-15.7); Immature Grans % 0.4; Lymphocytes % 25.4; MCH 28.7 pg (27.0-33.0); MCHC 32.7 % (32.0-36.0); MCV 88 fL (80-95); Monocytes % 10.1; Neutrophils % 58.9; Platelet Count 233 10^3/uL (130-400); RBC 4.94 10^6/uL (3.93-5.22); RDW 13.6 % (11.7-14.6); RDW-SD 43.7 fL; WBC 5.63 10^3/uL (4.4-10.8)
[2023-06-23 18:35] LABS: ALT 30 U/L (14-59); AST 26 U/L (15-37); Albumin 3.7 g/dL (3.4-5.0); Alkaline Phosphatase 83 U/L (46-116); Anion Gap 9.4 mmol/L (3-11); BUN 21 mg/dL (7-18); Bilirubin, Total 0.5 mg/dL (0.2-1.0); CO2 27.6 mmol/L (21.0-32.0); CREATININE 1.1 mg/dL (0.55-1.02); Calcium 9.6 mg/dL (8.5-10.1); Calculated LDL 151 mg/dL (<100); Chloride 103 mmol/L (98-107); Cholesterol 234 mg/dL (<200); Estimated GFR 56.11 (mL/min/1.73m2); Glucose 111 mg/dL (74-106); HDL Cholesterol 53 mg/dL (40-60); Potassium 3.9 mmol/L (3.5-5.1); Sodium 140 mmol/L (136-145); TSH (W/Ref FT4) 1.32 uIU/mL (0.36-3.74); Total Protein 7.6 g/dL (6.4-8.2); Triglyceride 154 mg/dL (<150)
== END 2023-06-23 12:07 | disposition home or self-care (01) ==
LOC: NCHCN 12:06
PROVIDERS: PCP Nurse Practitioner Family; Visit Provider Nurse Practitioner Family
DX: I10 Essential (primary) hypertension (principal); E78.5 Hyperlipidemia, unspecified; E04.2 Nontoxic multinodular goiter
CPT/HCPCS: 80053; 80061; 84443; 85025

== ENCOUNTER → 2023-09-27 03:16 | Outpatient (CLI) | payer MEDICARE, SELFPAY ==
--- NOTE | 2023-09-27 | DI.MAMMO_ITS ---
Exam(s) MAMMO SCREENING EXAM: MAMMO SCREENING CLINICAL HISTORY: SCREENING,FAMILY H/O BREAST CA.Z80.3,Z12.39 TECHNIQUE: Bilateral full field digital CC and MLO mammographic images were obtained with 3D tomosyn thesis and utilizing computer aided detection (CAD). COMPARISON: Available for comparison. FINDINGS: Masses/Architectural Distortion: None seen. Microcalcifications: No suspicious pleomorphic-type are seen. Skin Thickening/Nipple Retraction: None. IMPRESSION: 1. No significant interval change with no specific features of malignancy noted. 2. Unless there is more urgent need, screening mammography is recommended, as per [employer] guidelines. BI-RADS Category 1 - Negative Breast Density - Category B - Scattered areas of fibroglandular density Breast density category C or D implies that the patient has dense breast tissue. Dense breast tissue is very common and is not abnormal but dense breast tissue can make it harder to find cancer on a ma mmogram. Also, dense breast tissue may increase their breast cancer risk. This information about the result of the mammogram report was provided to the patient to raise their awareness. Use this report when you speak with the patient about their risks for breast cancer, which includes their family hist ory. At that time, you may recommend for more screening tests (Ultrasound or MRI) as they might be us eful based on their risk. A negative radiographic report should not delay biopsy if a dominant or clinically suspicious mass is present. Up to ten percent of cancers are not identified on mammography. A negative report may reinforce clinical impression. Adenosis and dense breasts may obscure an underlying neoplasm. False positive reports average 6 to 10%. Patient will receive a letter notifying them of these results.
== END ==
PROVIDERS: PCP Nurse Practitioner Family; Visit Provider Nurse Practitioner Family
DX: Z12.31 Encounter for screening mammogram for malignant neoplasm of breast (principal); Z80.3 Family history of malignant neoplasm of breast
CPT/HCPCS: 77063; 77067

== ENCOUNTER → 2023-10-06 14:05 | Outpatient (BNVA) | payer MEDICARE, SELFPAY | PROVIDERS: PCP Nurse Practitioner Family; Referring Provider Nurse Practitioner Family; Visit Provider Physical Therapy Assistant | DX: Z12.11 Encounter for screening for malignant neoplasm of colon (principal) ==

== ENCOUNTER 2023-11-03 09:05 | Day surgery (SDC) | payer MEDICARE, SELFPAY ==
[2023-11-03 09:10] VITALS: BP 137/86; PULSE 59; RESP 16; TEMP 36.7; O2SAT 96
[2023-11-03] MEDS: Lactated Ringers 1,000 ML 80 ML IV (09:29)
--- NOTE | 2023-11-03 10:02 | W.COLOREPORT ---
Date of service: 11/03/23 Time of Service: 10:02 Colonoscopy Report Procedure Description: PROCEDURES PERFORMED: 1. Colonoscopy with cold forceps polypectomy x 3 PREOPERATIVE DIAGNOSIS: Screening colonoscopy POSTOPERATIVE DIAGNOSIS: Diverticulosis, colon polyps SURGEON: Jose Robins MD INDICATION FOR PROCEDURE: The patient is a 63-year-old woman who has never had a colonoscopy. There is no family history of colon cancer. She has no symptoms. This is her first screening. FINDINGS: In the transverse colon a 2-3 mm flat polyp was removed with cold forceps technique. Further along another 1 was removed with cold forceps technique. In the descending colon another small 2-3 mm polyp was removed with cold forceps technique. Mild diverticular disease is present in the sigmoid colon. Mild grade 1 internal hemorrhoid disease noted. SURVEILLANCE interval/FOLLOW-UP: 3-10 years. If sessile serrated histology or tubulovillous then 3 years. If simple adenomatos or hyperplastic then 7 to 10 years. SPECIMENS: Yes, grade 1 internal hemorrhoids EBL: Minimal COMPLICATIONS: None QUALITY of prep: Excellent Procedure in detail: The patient gave written consent and was in agreement with the indications, the potential risks as well as the benefits of the procedure. They were taken to the endoscopy suite and laid in the left lateral decubitus position. A timeout was performed and anesthesia was administered which was tolerated well. I started the procedure. Digital rectal and visual examination was performed and grossly within normal limits. A well-lubricated flexible colonoscope was then introduced and passed without any notable difficulty all the way to the cecum identified by the ileocecal valve and the appendiceal orifice. The scope was then slowly withdrawn with the above-noted findings. The patient tolerated the procedure well and was taken to the PACU in hemodynamically stable condition.
--- NOTE | 2023-11-03 10:02 | W.PM.DSUDISC ---
Date of service: 11/03/23 Time of Service: 10:02 Discharge Plan Disposition Patient Disposition: Home Condition: Good Discharge Details Attending Provider: Stewart Robins Primary Care Provider: Diann Isaac Home Meds and New Rx's Prescriptions: No Action acetaminophen [Tylenol Arthritis Pain] 650 mg tablet extended release 650 mg PO Q12H bisacodyl [Dulcolax (bisacodyl)] 5 mg tablet,delayed release (DR/EC) 5 mg PO ONCE Qty: 4 0RF Rx Instructions: Take per colonoscopy instructions provided by ordering providers office polyethylene glycol 3350 17 gram/dose powder 17 g PO ONCE Qty: 238 0RF Rx Instructions: Take per colonoscopy instructions provided by ordering providers office biotin 10 mg tablet 10 mg PO DAILY Move Free Plus MSM 500 mg-66.7 mg- 500 mg-1.1 mg tablet 1 tab PO DAILY propranolol 80 mg tablet 80 mg PO BID Rx Instructions: 1 TAB Q AM THEN 2 TABS Q PM trazodone 100 mg tablet 100 mg PO DAILY amlodipine 5 mg tablet 5 mg PO DAILY omega 4-phq-tjq-fish oil [Fish Oil] 1,000 mg (120 mg-180 mg) capsule 1 cap PO BID Discharge Instructions Additional Instructions: FINDINGS: Some small polyps were found today and removed. This is why we do the colonoscopy. They are nothing to worry about. Also found today was mild diverticular disease and hemorrhoidal disease. These are both common, benign conditions that nothing needs to be done about. You probably need to do another colonoscopy in 7 to 10 years. Stand Alone Forms: Colonoscopy Post Instructions Activity:: Activity as Tolerated Diet:: As Tolerated
[2023-11-03 10:11] VITALS: BMI 49.6
--- NOTE | 2023-11-03 10:11 | ANES.PREOP_ITS ---
General Info Date of Service Date Performed: 11/03/23 Height: 5 ft 6 in Weight: 139.4 kg Body Mass Index (BMI): 49.6 Surgical Procedure: Operation Date: 11/03/23 10:50 Proposed Procedure Side Surgeon zohreh Robins MD Meds Allergies and Home Medications Allergies Allergy/AdvReac Type Severity Reaction Status Date / Time Gadolinium-Containing Allergy Severe anaphalaxis Verified 11/03/23 09:11 Contrast Medi Home Medication Medication Instructions Recorded biotin 10 mg tablet 10 mg PO DAILY 05/25/21 glucos 500 mg-chond 66.7 mg-msm 1 tab PO DAILY 05/25/21 500 mg-hyalur 1.1 mg-sachin borate tablet (Move Free Plus MSM) propranolol 80 mg tablet 80 mg PO BID 05/25/21 amlodipine 5 mg tablet 5 mg PO DAILY 09/26/23 omega 5-xej-xfi-fish oil 1,000 mg 1 cap PO BID 09/26/23 (120 mg-180 mg) capsule (Fish Oil) trazodone 100 mg tablet 100 mg PO DAILY 09/26/23 acetaminophen 650 mg 650 mg PO Q12H 10/06/23 tablet,extended release (Tylenol Arthritis Pain) bisacodyl 5 mg tablet,delayed 5 mg PO ONCE #4 tabs 10/06/23 release (Dulcolax (bisacodyl)) polyethylene glycol 3350 17 17 g PO ONCE #238 grams 10/06/23 gram/dose oral powder Current Visit Medications: Current Medications Generic Name Dose Route Start Last Admin Trade Name Freq PRN Reason Stop Dose Admin Ringer's Solution 1,000 mls @ 80 mls/hr 11/03/23 06:00 11/03/23 09:29 IV 12/02/23 23:59 80 mls/hr INFUSION CARMINA Administration IV Miscellaneous Supplies 1 each 11/03/23 06:00 Iv Access IV 12/02/23 23:59 DIRECTED CARMINA Sodium Chloride 0 ml 11/03/23 06:00 Normal Saline Flush 10 Ml Syr IV 12/02/23 23:59 PRN PRN Sodium Chloride 0 ml 11/03/23 06:00 Normal Saline 10 Ml Vial IJ 12/02/23 23:59 DIRECTED PRN Sterile Water 0 ml 11/03/23 06:00 Water,Injection,Sterile 10 Ml Vial IJ 12/02/23 23:59 DIRECTED PRN [facility] Medical History Medical History Hypertension Thyroid nodule Multinodular thyroid pt. reports biopsy two years ago Obesity Surgical History Surgical History History of total right knee replacement (07/14/21) History of cholecystectomy (12/18/90) History of appendectomy (12/18/90) Tobacco Smoking/Tobacco Use Status: Former Tobacco Use Alcohol Alcohol Intake: never Substance Use Substance use: Never Substance use type: does not use Vital Signs and Lab Results Vital Signs Most Recent Vital Signs in EMR: Most Recent Vital Signs Temp Pulse Resp BP Pulse Ox 36.7 C 59 L 16 137/86 96 11/03/23 09:10 11/03/23 09:10 11/03/23 09:10 11/03/23 09:10 11/03/23 09:10 Lab Results Blood Type / Crossmatch: 2 No Data to Display Complete Blood Count: 2 No Data to Display Complete Metabolic Panel: 2 No Data to Display Liver Function Panel: 2 No Data to Display Coagulation Panel: 2 No Data to Display Cardiac Panel: 2 No Data to Display Arterial Blood Gas: 2 No Data to Display Venous Blood Gas: 2 No Data to Display Pancreas Panel: 2 No Data to Display Thyroid Panel: 2 No Data to Display Infectious Disease: 2 No Data to Display Blood Cultures: 2 No Data to Display Toxicology Panel: 2 No Data to Display Anesthesia Assessment and Plan Anesthesia History Personal History: No History of Anesthesia Complications Family History: No Family History of Anesthesia Complications Exercise Tolerance Exercise Tolerance: Metabolic Equivalents>4 Pertinent Negatives Pertinent Negatives: No Symptoms of GERD, No Major Pulmonary Symptoms or Complaints and No History of CVA/TIA Cardiac & Pulmonary Exam Cardiac Exam: Normal S1/S2 Heart Sounds Pulmonary Exam: Clear Bilateral Breath Sounds Implantable Cardiac Device Does patient have a Pacemaker or an ICD?: No Airway Exam Known Difficult Airway: No Mallampati Class: 2 Mouth Opening: Normal (> 3cm) Thyromental Distance: Greater than 3 cm Neck Range of Motion: Full ROM Neck Circumference: Thick Teeth Condition: Normal Dentition Tooth Numberin 1. Broken tooth 2. Broken tooth ASA Classification ASA Score: ASA 3 Emergency Case?: No NPO Status NPO Status: NPO Clears >2 hours, Solids >8 hours Anesthesia Plan Resuscitation Status: Full Code Anesthesia Technique: General Anesthesia Airway Planned: Natural Airway Monitors Used: Standard Monitors
--- NOTE | 2023-11-03 10:32 | BOWEL_PTH ---
PATIENT: Purnima Taylor LOC: [facility] U#:[id number] AGE/SX: 63/F ROOM: RE11/03/[address]: Stewart Robins : 1960 BED: DIS: 11/03/2023 SPEC #: [id number] RECD: 11/03/23 13:08 STATUS: JENELLE RE #: [id number] THERON: 11/03/23 10:[address]: Stewart Robins DEPT: Surgical Specimen RECD BY: Asha Mejia ENTERED: 11/03/23 13:13 SP TYPE: Bowel OTHR DR: KEL MULLINS Tissues: 1 - BIOPSY BOWEL 2 - BIOPSY BOWEL 3 - BIOPSY BOWEL Procedures: GROSS AND MICRO LEVEL 4 Comments: [id number]
[2023-11-03 10:50] VITALS: BP 125/74; PULSE 58; RESP 19; TEMP 36.5; O2SAT 95
--- NOTE | 2023-11-03 11:09 | W.ANESPOSTOP ---
Postoperative Evaluation Date, Time and Location Date Performed: 11/03/23 Time Performed: 10:56 Patient Location: Day Surgery Unit Vital Signs Most Recent Imported Vital Signs: Most Recent Vital Signs Temp Pulse Resp BP Pulse Ox 36.5 C 58 L 19 125/74 95 11/03/23 10:50 11/03/23 10:50 11/03/23 10:50 11/03/23 10:50 11/03/23 10:50 Pain Score Most Recent Pain Score: Most Recent Pain Score Pain Level 0 11/03/23 10:50 Assessment Mental Status: Awake (Alert & Oriented to Patient Baseline) Airway and Respiratory Function: Patent airway with normal (patient baseline) respiratory exam Cardiovascular Function: Hemodynamically Stable Hydration Status: Adequately Hydrated Nausea & Vomiting: No Nausea or Vomiting Pain: Pt. Denies Any Pain Peripheral Nerve Block: Patient did not receive a nerve block
[2023-11-03 11:20] VITALS: BP 128/68; PULSE 57; RESP 16; TEMP 36.4; O2SAT 95
== END 2023-11-03 11:35 | disposition home or self-care (01) ==
PROVIDERS: PCP Nurse Practitioner Family; Visit Provider Student in an Organized Health Care Education/Training Program
PROC: 0DJD8ZZ Inspection of Lower Intestinal Tract, Via Natural or Artificial Opening Endoscopic (ICD-10-PCS; CPT 45378; principal; 2023-11-03 10:45)
DX: Z12.11 Encounter for screening for malignant neoplasm of colon (principal); D12.3 Benign neoplasm of transverse colon; K57.30 Diverticulosis of large intestine without perforation or abscess without bleeding
CPT/HCPCS: 45380; 00123; 88305; J2001; J2704

== ENCOUNTER 2024-06-26 16:43 | Outpatient (REF) | payer MEDICARE, SELFPAY ==
[2024-06-26 20:48] LABS: Hemoglobin A1C 5.6 % (<5.7)
[2024-06-26 21:21] LABS: ALT 34 U/L (14-59); AST 29 U/L (15-37); Albumin 3.8 g/dL (3.4-5.0); Alkaline Phosphatase 103 U/L (46-116); Anion Gap 10.2 mmol/L (3-11); BUN 19 mg/dL (7-18); Bilirubin, Total 0.61 mg/dL (0.2-1.0); CO2 26.8 mmol/L (21.0-32.0); Calcium 9.5 mg/dL (8.5-10.1); Calculated LDL 132 mg/dL (<100); Chloride 106 mmol/L (98-107); Cholesterol 220 mg/dL (<200); Estimated GFR 62.52 (mL/min/1.73m2); Glucose 105 mg/dL (74-106); HDL Cholesterol 59 mg/dL (40-60); Potassium 4.1 mmol/L (3.5-5.1); Sodium 143 mmol/L (136-145); TSH 1.25 uIU/mL (0.36-3.74); Total Protein 7.3 g/dL (6.4-8.2); Triglyceride 146 mg/dL (<150)
[2024-06-26 21:37] LABS: FREE T4 1.14 ng/dL (0.76-1.46)
== END 2024-06-26 16:44 | disposition home or self-care (01) ==
LOC: NCHCN 16:43
PROVIDERS: Visit Provider Nurse Practitioner Family
DX: I10 Essential (primary) hypertension (principal)
CPT/HCPCS: 80053; 80061; 83036; 84439; 84443

== ENCOUNTER 2024-10-11 00:36 | Outpatient (CLI) | payer MEDICARE, SELFPAY ==
--- NOTE | 2024-10-11 | DI.US_ITS ---
Exam(s) US THYROID EXAM: US THYROID CLINICAL HISTORY: Nontoxic multinodular goiter, E04.2; last US in 2019, 1 dominant in lt lobe. TECHNIQUE: Ultrasound thyroid performed using standard protocol. COMPARISON: US US THYROID from 07/18/2019 US US OR ANESTHESIA from 07/08/2021 FINDINGS: ISTHMUS: 5 mm. There are 2 nodules in the isthmus, each measuring 1.6 cm in maximal dimension. Ther e solid, isoechoic, wider than tall and smoothly marginated, TR 3. Mildly in size increased from pre vious exam, with a maximum dimension of 11 millimeters. RIGHT LOBE: Size: 5.1 x 2.0 x 1.8 cm Echogenicity: Normal. Vascularity: Normal. Nodules: Solid hypoechoic nodule in the upper pole of the right lobe measuring 8 x 7 x 7 millimeters ill-defined margins. No echogenic foci. TR 3. No significant change in size or appearance from cassi or. There other smaller isoechoic nodules. LEFT LOBE: Size: 6.4 x 2.6 x 3.2 cm Echogenicity: Normal. Vascularity: Normal. Nodules: Nodule lower pole measuring 3.3 x 2.2 x 2.8 cm. It is isoechoic, solid, smoothly marginated , wider than tall and without echogenic foci, TR 3. This is not changed from prior OTHER FINDINGS: No adenopathy. IMPRESSION: Stable size and appearance of thyroid nodules, the largest on the left lower pole. DATA REPOSITORY:
--- OUTSIDE RECORDS SUMMARY | 2024-10-11 00:39 | XMS_ITS | Encounter Summary ---
Author Organization [facility] Address [address] [place] [address] Care Team Providers Care Ball Rolling Machine Operator Name Role Phone Unavailable Primary Care Provider Unavailabl e Encounter Details Date Type Department Care Team (Late st Contact Info) Description 11/11/1999 Results Only [facility] - Maple conversion [address] [place] [address] Eva Lockwood NP ON LICENSE OF [facility] HOUSE STAFF MAIL [address] [place] [address] Social History Tobacco Use Types Packs/Day Years Used Date Smoking Tobacco: Never Assessed Comments Unknown Sex and Gender Information Value Date Recorded Sex Assigned at Not on file Legal Sex Female 17:37 EST Gender Identity Not on file Sexual Orientation Not on file documented as of this encounter Plan of Treatment Not on file documented as of this encounter Procedures Procedure Name Priority Date/Time Associated Diagnosis Comments CYTOPATHOLOGY Routine 11/11/1999 13:38 EST SURGICAL PATHOLOGY Routine 11/11/1999 8:59 EST documented in this encounter Results * CYTOPATHOLOGY (11/11/1999 13:38 EST) Pathology Report: CYTOPATHOLOGY REPORT Reports generated via electronic interface contain original data; however they are lacking the format of the original report. Caution should be taken when reading/interpreti ng unformatted reports. Name: ? EPIFANIO TAYLOR ? Accession #: ? [id number] : ? 1960 (Age: 39) ??F ?Collect Date: ? 11/11/1999 Location: ?Receive Date: ? 11/11/1999 Provider: ?EVA LOCKWOOD MD Copy to: ?FABIÁN MALCOLM, EVA Hand ? Specimen/Source: ?Director Of Retail ThinPrep Last Menstrual Period: ? GYNECOLOGIC ??CYTOPATHOLOGY ??REPORT Name: EPIFANIO TAYLOR ? [facility] : 1960 ?? 39Y F ?Client ID: ?? SS#: [id number] ? Clinician: EVA LOCKWOOD MD [place] [facility] [place] ??Copy to: ?? Specimen: ?Director Of Retail ThinPrep ? Source: Cervix/Endocervix ?Collected: 11/10/99 ? Received: 11/11/1999 ?LMP: 11/499 ?Hormone Therapy: No ? : No ? Radiation Therapy: No ?? Post : No ?Chemotherapy: No ?IUD: No ? Prev Abnormal Pap: No ?? Clinical Hx: ?(Blank poole indicate information not provided on requisition) SPECIMEN ADEQUACY: ? Satisfactory But Limited By ? Obscuring Blood ?? GENERAL CATEGORIZATION: ? BENIGN CELLULAR CHANGES ?? 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 Reviewed And Electronically Signed By: ? Husam Chang M.D. ? Report Date: ?? 11/13/1999 [employer] Archived Tests - Final Diagnosis Text Field: Clinical History : ? Document reviewed and electronically signed by: ? Conversion ? Report Date: ??11/13/1999 00:00 End of Report [facility] 11/11/1999 13:3 8 EST 11/11/1999 13:39 EST us Eva Lockwood NP PATHOLOGY ORDERABLES Final Res ult [facility] [address] [place] [address] * SURGICAL PATHOLOGY (11/11/1999 8:59 EST) Pathology Report: SURGICAL PATHOLOGY REPORT Reports generated via electronic interface contain original data; however they are lacking the format of the original report. Caution should be taken when reading/interpreti ng unformatted reports. Name: ? EPIFANIO TAYLOR ? Accession #: ? [id number] ? : ? 1960 (Age: 39) ??F ? Collect Date: ? 11/11/1999 ? Location: ?Receive Date: ? 11/11/1999 ? Provider: EVA LOCKWOOD MD Copy to: EVA LOCKWOOD MD ? Final Pathologic Diagnosis: MICROSCOPIC DIAGNOSIS: ? Endometrium, biopsy: ? - Fragments of menstrual endometrium. Document reviewed and electronically signed by: Conversion for SUZAN CONNELLY Report ??Date: 11/13/1999 00:00 By the signature above, the attending physician certifies that he/she has personally conducted a gross and/or microscopic examination of the described specimens and rendered or confirmed the above diagnosis. Specimen(s) Received: TISSUE SUBMITTED: ? Endometrial biopsy CLINICAL DATA: ? PCOS; no menses since 1993; irreg vag bleed; LMP: 11/09/99 Gross Description: GROSS: ? Received in formalin labelled [place] and endometrial ? biopsy are multiple, red-brown, slightly mucoid, soft tissue ? fragments aggregating 3.0 x 2.5 x 0.3 cm. ??The specimen is ? entirely submitted as (A) and (B). ??(Nisha Serna)/amadou End of Report [facility] 11/11/1999 8:59 EST 11/11/1999 9:00 EST us Eva Lockwood NP PATHOLOGY ORDERABLES Final Res ult [facility] [address] [place] [address] documented in this encounter Visit Diagnoses Not on filedocumented in this encounter
--- OUTSIDE RECORDS SUMMARY | 2024-10-11 00:39 | XMS_ITS | Encounter Summary ---
Author Organization [facility] Address [address] [place] [address] Care Team Providers Care Ordnance Technician Name Role Phone Unavailable Primary Care Provider Unavailabl e Encounter Details Date Type Department Care Team (Late st Contact Info) Description 06/26/2012 Results Only [facility] Laboratory Services - [facility] [place] [place] [address] [place] [address] Murphy Smith, ANDRE [address] [place] [address] Social History Tobacco Use Types Packs/Day Years [...] Procedure Name Priority Date/Time Associated Diagnosis Comments PAP TEST- RESULT ONLY Routine 06/26/2012 0:00 EDT documented in this encounter Results * PAP TEST- RESULT ONLY (06/26/2012 0:00 EDT) Pathology Report: CYTOPATHOLOGY REPORT Reports generated via electronic interface contain original data; however they are lacking the format of the original report. Caution should be taken when reading/interpreti ng unformatted reports. Name: ? EPIFANIO TAYLOR ? Accession #: ? [id number] : ? 1960 (Age: 51) ??F ?Collect Date: ? 06/26/2012 Location: ? [facility] ? Receive Date: ? 06/28/2012 Provider: ?MURPHY SMITH OPERATIONS RESEARCH ENGINEER Copy to: ? Specimen/Source: ?Pap Test, Cervix/Endocervix, ThinPrep Imaging System with manual evaluation Last Menstrual Period: ?2008 ? SPECIMEN ADEQUACY ? Satisfactory for Evaluation - assessment of transformation zone component not applicable ( e.g. atrophy, vaginal sample, hysterectomy) GENERAL CATEGORIZATION ? Negative for Intraepithelial Lesion or Malignancy ? Document reviewed and electronically signed by: ? ТАТЬЯНА Duarte(ASCP) ? Report Date: ??2012 14:10 End of Report [facility] 06/26/2012 06/28/2012 us Murphy Smith NP PATHOLOGY ORDERABLES Final R esult [facility] [address] [place] [address] documented in this encounter Visit Diagnoses Not on filedocumented in this encounter
--- OUTSIDE RECORDS SUMMARY | 2024-10-11 00:39 | XMS_ITS | Referral Summary ---
Author Organization [facility] Address [address] [place] [address] Care Team Providers Care Senior Chemical Process Engineer Name Role Phone Jeff Sanchez MD Primary Care Provider Un available Social History Tobacco Use Types Packs/Day Years Used Date Smoking Tobacco: Never Assessed Interpersonal Safety Answer Date Record ed Physically Hurt Never 04/06/2020 Verbally Threaten Not on file 04/06/2020 Comments Unknown Sex and Gender Information Value Date Recorded Sex Assigned at Not on file Legal Sex Female 17:37 EST Gender Identity Not on file Sexual Orientation Not on file Plan of Treatment Not on file Care Teams Senior Chemical Process Engineer Relationship Specialty Start Date End Date Jeff Sanchez MD PCP - General 07/26/15
--- OUTSIDE RECORDS SUMMARY | 2024-10-11 00:39 | XMS_ITS | Clinical Summary ---
Author Organization [facility] Address [address] [place] [address] Care Team Providers Care Ethylene Compressor Operator Name Role Phone Jeff Sanchez MD Primary [...] Orientation Not on file Plan of Treatment Health Maintenance Due Date Last Done Comments Hepatitis C Screen 1960 Fall Risk Screening 2023 COVID-19 Vaccine ( season) 2024 RSV Immunization ( o r 60+ Years) (1 - 1-dose 75+ series) 2033 Care Teams Ethylene Compressor Operator Relationship Specialty Start Date End Date Jeff Sanchez MD PCP - General 07/26/15
--- OUTSIDE RECORDS SUMMARY | 2024-10-11 00:39 | XMS_ITS | Encounter Summary ---
Author Organization [facility] Address [address] [place] [address] Care Team Providers Care Seat Scooper Machine Name Role Phone Jeff Sanchez MD Primary Care Provider Un available Encounter Details Date Type Department Care Team ([facility] st Contact Info) Description 04/27/2016 Results Only [facility] [phone] Ning Shanks, JEREMY [address] [place], [place] [id number] Social History Tobacco Use Types Packs/Day Years [...] Diagnosis Comments PAP TEST- RESULT ONLY Routine 04/27/2016 0:00 EDT documented in this encounter Results * PAP TEST- RESULT ONLY (04/27/2016 0:00 EDT) Pathology Report: CYTOPATHOLOGY REPORT Reports generated via electronic interface contain original data; however they are lacking the format of the original report. Caution should be taken when reading/interpreti ng unformatted reports. Name: ? EPIFANIO TAYLOR ? Accession #: ? [id number] ? : ? 1960 (Age: 55) ??F ?Collect Date: ? 04/27/2016 ? Location: ? [facility] ? Receive Date: ? 04/28/2016 ? Provider: NING SHANKS COUTURE DRESSMAKER Copy to: ? Final Report SPECIMEN ADEQUACY ? Satisfactory for Evaluation - transformation zone component present GENERAL CATEGORIZATION ? Negative for Intraepithelial Lesion or Malignancy ?? Specimen/Source: ??Pap Test, Cervix/Endocervix, ThinPrep Imaging System with manual evaluation Document reviewed and electronically signed by: ? ТАТЬЯНА Conrad(ASCP) ? Report ??Date: 04/30/2016 16:11 HPV with Pap Test ? Date Ordered: ? 04/30/2016 ? Status: ?? Signed Out ?Date Complete: ? 05/04/2016 ? By: ??System Interface ? Date Reported: ? 05/04/2016 ? Interpretation RESULT: Negative for HPV. No E6 or E7 mRNA is detected from HPV types 16,18,31,33,35, 39,45,51,52,56,58, 59,66, and 68 by package liner mediated amplification. Comments Document reviewed and electronically signed by: ? System Interface ? Report date: 05/04/2016 By the signature above, the attending physician certifies that he/she has personally conducted a gross and/or microscopic examination of the described specimens and rendered or confirmed the above diagnosis. End of Report [facility] 04/27/2016 04/28/2016 us Ning Shanks COUTURE DRESSMAKER PATHOLOGY ORDERABLES Final Re sult [facility] [address] [place] [address] documented in this encounter Visit Diagnoses Not on filedocumented in this encounter Care Teams Seat Scooper Machine Relationship Specialty Start Date End Date Jeff Sanchez MD PCP - General 07/26/15 documented as of this encounter
--- OUTSIDE RECORDS SUMMARY | 2024-10-11 00:39 | XMS_ITS | Encounter Summary ---
Author Organization [facility] Address [address] [place] [address] Care Team Providers Care Panel Wirer Name Role Phone Jeff Sanchez MD Primary Care Provider Un available Encounter Details Date Type Department Care Team (Late st Contact Info) Description 09/14/2019 Lab Requisition [facility] Pathology & Laboratory Medicine - [address] [address] Jameson Díaz, [address] [facility] [address] [place] [id number] Nontoxic single thyroid nodule Social History Tobacco Use Types Packs/Day Years [...] Procedure Name Priority Date/Time Associated Diagnosis Comments NON SOLAR ELECTRIC PRACTITIONER/FNA CYTOLOGY Today 09/13/2019 15:00 EST Nontoxic single thyroid nodule documented in this encounter Results * NON SOLAR ELECTRIC PRACTITIONER/FNA CYTOLOGY (09/13/2019 15:00 EST) Final Diagnosis A. THYROID, LEFT LOBE, ULTRASOUND-GUIDED FINE NEEDLE ASPIRATION: -Benign follicular nodule. See comment. 09/17/2019 17:03 EST [facility] at 1703 Diagnosis Comment The aspirate smears are adequately cellular and contain variably-sized groups of unremarkable follicular cells. The background contains thick and watery colloid, abundant macrophages, including multinucleated giant cells, and cyst-lining cells. The cytologic features are those of a benign follicular nodule with cystic change. Hand Pattern Marker slides of this case were reviewed at the intradepartmental consultation conference. Sheryl Barron DO 09/17/19 10:45 09/17/2019 17:03 [facility] Clinical History Left thyroid nodule 09/17/2019 17:03 [facility] Rapid Diagnosis THYROID, LEFT, ULTRASOUND GUIDED FINE NEEDLE ASPIRATION: Evaluation episode #1: Pass 1: Clotted, in CytoLyt. Evaluation episode #2: Pass 2: Cyst contents only. Evaluation episode #3: Pass 3: Rare follicular cells, inadequate. Evaluation episode #4: Pass 4: Marginally adequate. Dr. Nisha Mckeon 09/13/2019 09/17/2019 17:03 [facility] Gross Description 3 fixed prepared slides, 6 Diff Quik prepared slides, and 1 tube of CytoLyt were received and processed by selective cellular enhancement technique. 09/17/2019 17:03 [facility] Resident/Fell ow: 09/17/2019 17:03 [facility] Attestation By the signature below, the attending physician certifies that they have personally conducted a gross and/or microscopic examination of the described specimens and rendered or confirmed the above diagnosis. 09/17/2019 17:03 [facility] at 1703 Fine Needle Aspirate ENTIRE LEFT LOBE OF THYROID GLAND / Unknown 09/13/2019 15:00 EST 09/14/2019 6:35 EST us Jameson CONLEY PATHOLOGY ORDERABLES Final Result [facility] [address] [place] [address] documented in this encounter Visit Diagnoses Diagnosis Nontoxic single thyroid nodule Nontoxic uninodular goiter documented in this encounter Care Teams Panel Wirer Relationship Specialty Start Date End Date Jeff Sanchez MD PCP - General 07/26/15 documented as of this encounter
--- OUTSIDE RECORDS SUMMARY | 2024-10-11 00:39 | XMS_ITS | Encounter Summary ---
Author Organization [facility] Address [address] [place] [address] Care Team Providers Care Email Marketing Assistant Name Role Phone Unavailable Primary Care Provider Unavailabl e Encounter Details Date Type Department Care Team (Late st Contact Info) Description 11/10/1999 11:58 EST Hospital Encounter [facility] - Other [address] [place] [address] Georgia Ryan, RN SUPPLEMENTAL FA HOUSE STAFF MAIL [address] [place] [address] Unknown, Provider, Social History Tobacco Use Types Packs/Day Years [...] Procedure Name Priority Date/Time Associated Diagnosis Comments DHEA SULFATE Routine 11/10/1999 11:04 EST GLUCOSE, PLASMA Routine 11/10/1999 11:04 EST 17 OH-PROGESTERONE Routine 11/10/1999 11 :04 EST INSULIN Routine 11/10/1999 11:04 EST TESTOSTERONE Routine 11/10/1999 11:04 EST HEMOGLOBIN A1C Routine 11/10/1999 11:04 EST LIPID PROFILE (INCLUDES CHOLESTEROL, TRIGLYCERIDES, HDL, LDL) Routine 11/10/1999 11:04 EST documented in this encounter Results * TESTOSTERONE (11/10/1999 11:04 EST) Testosterone, Total 69 14 - 76 ng/dl [facility] Comment:Fasting 11/10/1999 11:0 4 EST 11/10/1999 11:16 EST Georgia Ryan NP CHEMISTRY & BLOOD GAS ORDERABL ES Final Result Performing Organization Address [facility] Phone Number [facility] [address] [place] [address] * LIPID PROFILE (INCLUDES CHOLESTEROL, TRIGLYCERIDES, HDL, LDL) (11/10/1999 11:04 EST) Cholesterol 224 mg/dl [facility] Comment: Desirable:<200 Borderline:200-239 High Risk:>bh=752 Fasting Triglycerides 123 35 - 160 mg/dl [facility] Comment:Fasting HDL 58 mg/dl [facility] Comment: Highly Desirable:>60 Desirable:35-60 High Risk:<35 Fasting LDL, Calculated 141 mg/dl [facility] Comment: Desirable:<130 Borderline:130-159 High Risk:>cl=176 Fasting Chol/HDL Ratio 3.9 Fasting [facility] 11/10/1999 11:0 4 EST 11/10/1999 11:16 EST Georgia Ryan NP CHEMISTRY & BLOOD GAS ORDERABL ES Final Result Performing Organization Address [facility] de Phone Number [facility] [address] [place] [address] * INSULIN (11/10/1999 11:04 EST) Insulin 14.9 uU/ml [facility] Comment: Fasting: Less than 22 Fasting 11/10/1999 11:0 4 EST 11/10/1999 11:16 EST Georgia Ryan NP CHEMISTRY & BLOOD GAS ORDERABL ES Final Result Performing Organization Address [facility] de Phone Number [facility] [address] [place] [address] * GLUCOSE, PLASMA (11/10/1999 11:04 EST) Pathologist [facility] Glucose, Plasma 84 70 - 110 mg/dl [facility] Comment:Fasting 11/10/1999 11:0 4 EST 11/10/1999 11:16 EST Georgia Ryan RN SUPPLEMENTAL CHEMISTRY & BLOOD GAS ORDERABL ES Final Result Performing Organization Address [facility] de Phone Number [facility] [address] [place] [address] * DHEA SULFATE (11/10/1999 11:04 EST) Pathologist [facility] DHEA Sulfate 0.65Unit: ug/mL ??(Note) -- EXPECTED VALUES -- ? (Ref Range) 0.00 to 1.88 (40 ? TEST PERFORMED OR REFERRED BY [facility] ? [facility] ? [address] ? [place], [place] ??[address] ? [facility] 11/10/1999 11:0 4 EST 11/10/1999 11:16 EST Georgia Ryan NP HISTORICAL LAB FOR SQ LOAD Fin al Result Performing Organization Address [facility] de Phone Number [facility] [address] [place] [address] * HEMOGLOBIN A1C (11/10/1999 11:04 EST) Hemoglobin A1C 4.6 % [facility] Comment: Glucose Control Index Poor=greater than 10% Fair=9-10% Good=8-9% Excellent=7-8% Near Normal=6-7% Non-Diabetic=less than 6% Fasting 11/10/1999 11:0 4 EST 11/10/1999 11:16 EST Georgia Ryan NP CHEMISTRY & BLOOD GAS ORDERABL ES Final Result Performing Organization Address [facility] Phone Number [facility] [address] [place] [address] * 17 OH-PROGESTERONE (11/10/1999 11:04 EST) 17-Hydroxypro gesterone 41Unit: ng/dL ??(Note) -- EXPECTED VALUES -- ? (Ref Range) <630 ( females) ? <100 (Prepubertal females) ? < 80 (Adult females, Follicular) ? <285 (Adult females, Luteal) ? < 51 (Adult females, ?Postmenopau marta) ? TEST PERFORMED OR REFERRED BY [facility] ? [facility] ? [address] ? [place], [place] ??[address] ? [facility] 11/10/1999 11:0 4 EST 11/10/1999 11:16 EST us Georgia Ryan NP CHEMISTRY & BLOOD GAS ORDERABL ES Final Result [facility] [address] [place] [address] documented in this encounter Visit Diagnoses Not on filedocumented in this encounter
--- OUTSIDE RECORDS SUMMARY | 2024-10-11 00:39 | XMS_ITS | Encounter Summary ---
Author Organization [facility] Address [address] [place] [address] Care Team Providers Care Parks Recreation Director Name Role Phone Unavailable Primary Care Provider Unavailabl e Encounter Details Date Type Department Care Team (Late st Contact Info) Description 11/11/1999 16:46 EST Hospital Encounter [facility] - Other [address] [place] [address] Georgia Ryan, TELECOMMUNICATIONS SUPPORT FA HOUSE STAFF MAIL [address] [place] [address] Unknown, Provider, Social History Tobacco Use Types [...] on file documented as of this encounter Visit Diagnoses Not on filedocumented in this encounter
--- OUTSIDE RECORDS SUMMARY | 2024-10-11 00:39 | XMS_ITS | Encounter Summary ---
Author Organization [facility] Address [address] [place] [address] Care Team Providers Care Guide Foreign Tour Name Role Phone Jeff Sanchez MD Primary Care Provider Un available Encounter Details Date Type Department Care Team ([facility] st Contact Info) Description 11/03/2023 Lab Requisition [facility] Pathology & Laboratory Medicine - [address] [address] Stewart Robins MD [address] [place] [phone] Encounter for other general examination Social History Tobacco Use Types Packs/Day Years [...] Procedure Name Priority Date/Time Associated Diagnosis Comments SURGICAL PATHOLOGY Today 11/03/2023 10 :32 EST Encounter for other general examination documented in this encounter Results * SURGICAL PATHOLOGY (11/03/2023 10:32 EST) Note to Patient The following pathology results have been interpreted by your pathologist and may be available to you before your health provider has had the opportunity to review them. Please allow time for your provider to receive these results and explore management options, if applicable. 11/08/2023 8:48 [facility] Final Diagnosis A. COLON, TRANSVERSE 1, POLYP X 1, BIOPSY: - Tubular adenoma. B. COLON, TRANSVERSE 2, POLYP X 1, BIOPSY: - Tubular adenoma. C. COLON, DESCENDING, POLYP X 1, BIOPSY: - Hyperplastic polyp. 11/08/2023 8:48 [facility] Attestation By the signature below, the attending physician certifies that they have 1) personally conducted a gross and/or microscopic examination of the described specimen(s), and/or personally interpreted the results of laboratory testing of the described specimen(s), and 2) personally rendered or confirmed the above diagnosis. 11/08/2023 8:48 [facility] at 0848 Clinical History Screening colonoscopy, colon polyps, diverticulosis, internal hemorrhoids 11/08/2023 8:48 [facility] Gross Description A. Received in formalin labelled with proper patient identification (initials L, M) and 1 transverse colon polyp x1 are 2 jacobsen tissues (0.4 x 0.2 x 0.1 cm and 0.7 x 0.1 x 0.1 cm). Submitted entirely in A1. B. Received in formalin labelled with proper patient identification (initials L, M) and 2 transverse colon polyp x1 Is a single jacobsen-brown polypoid tissue ( 0.4 x 0.3 x 0.2 cm). Submitted intact in B1. C. Received in formalin labelled with proper patient identification (initials L, M) and descending colon polyp x1 are 4 jacobsen tissues (0.2 x 0.1 x 0.1 cm to 0.3 x 0.3 x 0.1 cm). Submitted entirely in C1. JARVIS ORO(ASCP) 11/04/2023 7:23 11/08/2023 8:48 [facility] Performing Lab [facility] 11/08/2023 8:48 [facility] Scanned Images 11/08/2023 8:48 [facility] Tissue DESCENDING COLON STRUCTURE / Unknown 11/03/2023 10:32 EST 11/03/2023 16:46 EST Tissue specimen (specimen) TRANSVERSE COLON STRUCTURE / Unknown 11/03/2023 10:32 EST 11/03/2023 16:46 EST Tissue specimen (specimen) DESCENDING COLON STRUCTURE / Unknown 11/03/2023 10:32 EST 11/03/2023 16:46 EST us Stewart Robins MD PATHOLOGY ORDERABLES F inal Result [facility] [address] [place] [address] documented in this encounter Visit Diagnoses Diagnosis Encounter for other general examination documented in this encounter Care Teams Guide Foreign Tour Relationship Specialty Start Date End Date Jeff Sanchez MD PCP - General 07/26/15 documented as of this encounter
--- OUTSIDE RECORDS SUMMARY | 2024-10-11 00:39 | XMS_ITS | Encounter Summary ---
Author Organization [facility] Address [address] [place] [address] Care Team Providers Care Professor Of Astronomy Name Role Phone Unavailable Primary Care Provider Unavailabl e Encounter Details Date Type Department Care Team (Late st Contact Info) Description 12/02/2009 Results Only [facility] Laboratory Services - [facility] ([facility] [address] [place] [address] Murphy Smith, ANDRE [address] [place] [address] Social History Tobacco Use Types [...] Priority Date/Time Associated Diagnosis Comments CYTOPATHOLOGY Routine 12/02/2009 0:00 EDT documented in this encounter Results * CYTOPATHOLOGY (12/02/2009 0:00 EDT) Pathology Report: CYTOPATHOLOGY REPORT ? Reports generated via electronic interface contain original data; ? however they are lacking the format of the original report. ? Caution should be taken when reading/interpreti ng unformatted reports. ? Name: ? MORELIAEPIFANIO ? Accession #: ? [id number] ? : ? 1960 (Age: 49) ??F ?Collect Date: ? 12/02/2009 ? Location: ? [facility] ? Receive Date: ? 12/03/2009 ? Provider: ?MURPHY SMITH NP ? Copy to: ? Specimen/Source: ?Pap Test, Cervix/Endocervix, ThinPrep Imaging System ? with manual evaluation ? Last Menstrual Period: ? 2005 ? Other: ? HPVA - HPV testing requested if ASC-US on the current ThinPrep Pap test. ? SPECIMEN ADEQUACY ? Satisfactory for Evaluation ? - assessment of transformation zone component not applicable ( e.g. atrophy, ? vaginal sample, hysterectomy) ? GENERAL CATEGORIZATION ? Negative for Intraepithelial Lesion or Malignancy ? Document reviewed and electronically signed by: ? Raine Alexnadra, SCT(ASCP) ? Report Date: ??12/09/2009 11:47 ? End of Report ? [facility] 12/02/2009 12/03/2009 us Murphy Smith TELEVISION ANNOUNCER PATHOLOGY ORDERABLES Final R esult [facility] [address] [place] [address] documented in this encounter Visit Diagnoses Not on filedocumented in this encounter
--- NOTE | 2024-10-11 14:30 | DI.US_ITS ---
APPROVED REPORT EXAM: Comprehensive 2D, Doppler, and color-flow Echocardiogram Patient Location: Out-Patient [facility] Person: Bertin Gann RDCS (AE) Indications: New systolic murmur, fatigue Other Information Study Quality: Fair. Technically limited study due to body habitus. Conclusion Mild concentric left ventricular hypertrophy. Ejection fraction is 65%. Wall motion is normal Normal right ventricular size and function Both atria are normal in size There is no structural or hemodynamically significant valvular disease Wall motion Left Ventricle Left ventricle is moderately dilated. The left ventricular systolic function is normal. The left vent ricular ejection fraction is within the normal range. Mild concentric left ventricular hypertrophy. T here is normal LV segmental wall motion. There is no ventricular septal defect visualized. LVEF is 65 %. Right Ventricle The right ventricle is normal size. The right ventricular systolic function is normal. Atria The left atrium size is normal. The right atrium size is normal. The interatrial septum is intact wit h no evidence for an atrial septal defect. Aortic Valve Aortic valve is grossly normal in structure. Aortic valve is probably trileaflet. There is no aortic valvular stenosis. No aortic regurgitation is present. Mitral Valve The mitral valve is normal in structure. No evidence of mitral valve stenosis. Trace mitral regurgita tion. Tricuspid Valve The tricuspid valve is normal in structure. There is no tricuspid valve stenosis. Trace tricuspid reg urgitation. Unable to assess PA pressure. Pulmonic Valve The pulmonary valve is normal in structure. There is no pulmonic valvular stenosis. There is no pulmo alex valvular regurgitation. Great Vessels The aortic root is normal in size. The ascending aorta is normal in size. Aortic arch is not well vis ualized. IVC is normal in size and collapses >50% with inspiration. Pericardium There is no pericardial effusion. 2D Dimensions IVSD d PLAX 1.09 cm F: 0.6-1.0 Ao Root d 2.61 cm F: 2.7 - 3.3 LVPW d PLAX 1.14 cm F: 0.6 - 1.0 Ao Asc Diam d 2.94 cm F: 2.3 - 3.1 LVID d PLAX 6.01 cm F: 3.8 - 5.2 LVDs 3.80 cm F: 2.2 - 3.5 LV EF Teichholz 65.8 % FS 36.80 % LV EDV (Teich) 180.4 mL LV ESV (Teich) 61.8 mL Stroke Vol Index (Teich) 48.23 M-Mode TAPSE 3.57 cm (M/F) >1.7 Auto EF LV EDV A4C 124.3 mL LV EDV A2C 145.3 mL LV EDV BP 135.8 mL LV ESV A4C 43.8 mL LV ESV A2C 44.9 mL LV ESV BP 45.3 mL LVEF(%) A4C 64.8 % LVEF(%) A2C 69.1 % LVEF(%) BP 66.7 % LV SV A4C 80.5 ml LV SV A2C 100.5 ml LV SV BP 90.5 ml LV CO A4C 4.0 L/min LV CO A2C 5.3 L/min LV CO BP 4.7 L/min HR A4C 49.86 BPM HR A2C 53.02 BPM LV EDV Index (BP) LA Volume LA Length A4C 5.1 cm LA Length A2C 6.2 cm LA Area A4C s 11.70 cm2 LA Area A2C s 18.25 cm2 LA Vol A4C A-L 22.71 mL LA Vol A2C A-L 45.94 mL LA Vol Biplane A-L 35.4 mL LA Vol/BSA A4C A-L LA Vol/BSA A2C A-L LA Vol/BSA BP A-L 14.4 mL/m2 LA Vol A4C MOD 21.9 mL LA Vol A2C MOD 43.7 mL LA Vol BP MOD 33.2 mL RA Volume RA Area A4C 10.1 cm2 RA ESV A4C (A-L) 20.1mL RA Vol/BSA A4C A-L RA Length A4C 4.3 cm RA ESV A4C (MOD) 19.0mL LV Diastology MV E' medial 0.071 (>0.07 m/s) MV E Vmax 0.71 (0.4-1.3 m/s) MV E/E' MED 9.92 (<14) MV A Vmax 0.65 (0.4-1.3 m/s) MV E' lateral 0.097 (>0.1 m/s) E/A Ratio 1.1 MV E/E' LAT 7.28 (<14) MV E' Average 0.084 m/s MV E/E'(average) 8.40 Aortic Valve AoV Vmax 1.93 m/s LVOT Vmax 1.31 m/s AoV Peak Grad 14.9 mmHg LVOT Peak Grad 6.9 mmHg AoV Area (Vmax) 1.90 cm2 LVOT VTI 0.290 m AoV VTI 0.409 m LVOT Mean Grad 3.5 mmHg AoV Mean Bonifacio. 1.21 m/s LVOT SV 81.31 mL AoV Mean Grad 7.0 mmHg LVOT Diam s 1.85 cm AoV Area (VTI) 1.99 cm2 AV Regurg Peak Gr. 14.93 mmHg Velocity Ratio 0.68 Mitral Valve MV DT 206 (160-240 msec) Pulmonary Valve PV Vmax 1.20 (0.5-1.5 m/s) RVOT Vmax 1.00 m/s PV Peak Grad 5.8 mmHg RVOT Peak Gr. 4.0 mmHg PV Mean Bonifacio 0.83 m/s RVOT VTI 0.229 m PV Mean Grad 3.2 mmHg RVOT Mean Gr. 2.1 mmHg
== END 2024-10-11 00:56 ==
PROVIDERS: PCP Nurse Practitioner Family; Visit Provider Internal Medicine Cardiovascular Disease
DX: I51.7 Cardiomegaly (principal)
CPT/HCPCS: 93306; 76536